=== PATIENT | female | born 1945 | race Caucasian/White ===

== ENCOUNTER 2022-09-13 19:42 | Inpatient (IN) | payer MEDICARE, BC ==
[~2022-09-13] VITALS: Ht 165.1 cm; Wt 118.8 kg
[~2022-09-13 19:42] MED LIST: AMLO10 PO; ASPI81CH PO; Avapro300 MG PO; CALCIUM CARBON650 MG PO; DECADRON4 M1 PO; Feldene20 MG; HYDCHL25 PO; MULVITMIND; VALS80; VITAMIN D31000 UNI1 PO
[2022-09-13 22:23] LABS: BASOPHILS ABSOLUTE AUTO 0.06 K/mm3 (0.00-0.23); BASOPHILS PERCENT AUTO 0 % (0-2); EOSINOPHILS ABSOLUTE AUTO 0.01 K/mm3 (0.00-0.68); EOSINOPHILS PERCENT AUTO 0 % (0-6); Hematocrit 47.4 % (33.0-51.0); Hemoglobin 15.7 g/dL (11.5-16.0); IMMATURE GRAN ABSOLUTE AUTO 0.06 K/mm3 (0.00-0.10); IMMATURE GRAN PERCENT AUTO 0 % (0-1); LYMPHOCYTES ABSOLUTE AUTO 0.72 K/mm3 (0.84-5.20); LYMPHOCYTES PERCENT AUTO 5 % (21-46); MONOCYTES ABSOLUTE AUTO 1.49 K/mm3 (0.16-1.47); MONOCYTES PERCENT AUTO 10 % (4-13); Mean Corpuscular HGB 29.6 pg (26.0-34.0); Mean Corpuscular HGB Conc 33.1 g/dL (31.5-36.5); Mean Corpuscular Volume 89 fL (80-100); Mean Platelet Volume 11.1 fL (9.1-12.4); NEUTROPHILS ABSOLUTE AUTO 13.21 K/mm3 (1.96-9.15); NEUTROPHILS PERCENT AUTO 85 % (41-73); Platelet Count 275 K/mm3 (150-400); RDW Coefficient Variation 12.6 % (11.7-14.2); RDW Standard Deviation 41.9 fL (35.1-46.3); White Blood Cell Count 15.55 K/mm3 (4.00-11.30)
[2022-09-13 22:40] LABS: Bun/Creatinine Ratio 18.1 (12.0-20.0); Calcium, Blood 10.2 mg/dL (8.5-10.1); Creatinine, Blood 0.94 mg/dL (0.40-1.00); Potassium, Blood 4.2 mmol/L (3.5-5.5)
[2022-09-14 01:17] LABS: Influenza A, PCR NEGATIVE (NEGATIVE); Influenza B, PCR NEGATIVE (NEGATIVE); SARS-Cov-2 (COVID-19) PCR, MMC NEGATIVE (NEGATIVE)
[2022-09-14 01:28] LABS: Resp Syncytial Virus, PCR POSITIVE (NEGATIVE)
--- NOTE | 2022-09-14 03:29 | NUR ---
Patient resting in room, remains NPO.
[2022-09-14 06:23] LABS: BASOPHILS ABSOLUTE AUTO 0.05 K/mm3 (0.00-0.23); BASOPHILS PERCENT AUTO 0 % (0-2); EOSINOPHILS ABSOLUTE AUTO 0.03 K/mm3 (0.00-0.68); EOSINOPHILS PERCENT AUTO 0 % (0-6); Hematocrit 45.8 % (33.0-51.0); IMMATURE GRAN ABSOLUTE AUTO 0.04 K/mm3 (0.00-0.10); IMMATURE GRAN PERCENT AUTO 0 % (0-1); LYMPHOCYTES ABSOLUTE AUTO 1.48 K/mm3 (0.84-5.20); LYMPHOCYTES PERCENT AUTO 11 % (21-46); MONOCYTES ABSOLUTE AUTO 1.94 K/mm3 (0.16-1.47); MONOCYTES PERCENT AUTO 15 % (4-13); Mean Corpuscular HGB 29.5 pg (26.0-34.0); Mean Corpuscular HGB Conc 32.8 g/dL (31.5-36.5); Mean Corpuscular Volume 90 fL (80-100); Mean Platelet Volume 10.2 fL (9.1-12.4); NEUTROPHILS ABSOLUTE AUTO 9.84 K/mm3 (1.96-9.15); NEUTROPHILS PERCENT AUTO 74 % (41-73); Platelet Count 253 K/mm3 (150-400); RDW Coefficient Variation 12.7 % (11.7-14.2); RDW Standard Deviation 42.3 fL (35.1-46.3); Red Blood Cell Count 5.09 M/mm3 (3.80-5.20); White Blood Cell Count 13.38 K/mm3 (4.00-11.30)
[2022-09-14 06:48] LABS: Albumin, Blood 3.2 g/dL (3.4-5.0); Albumin/Globulin Ratio 0.7 (0.8-1.8); Bun/Creatinine Ratio 20.7 (12.0-20.0); Calcium, Blood 10.5 mg/dL (8.5-10.1); Creatinine, Blood 0.87 mg/dL (0.40-1.00); Globulin, Blood 4.3 g/dL (2.2-4.0); Potassium, Blood 4.6 mmol/L (3.5-5.5); Total Protein, Blood 7.5 g/dL (6.4-8.2)
--- NOTE | 2022-09-14 17:46 | NUR ---
DAYSHIFT SUMMARY Patient admitted for hip fx, pelvic CT completed this morning, results showed no fracture. Surgeon at bedside & updated pt/family. Patient worked with PT/OT, therapy recommending homehealth therapy. placed discharge orders & f/u homehealth. Patient left medical floor at 1740.
== END 2022-09-14 17:40 | disposition home health service (06) | DRG 604 ==
LOC: ER 19:42 → MEDS 09-14 00:24 → ERHOLD 09-14 00:24 → MEDS 09-14 01:27
PROVIDERS: Family Medicine; Student in an Organized Health Care Education/Training Program; ADMIT Hospitalist
DX: S30.0XXA Contusion of lower back and pelvis, initial encounter (principal); J96.01 Acute respiratory failure with hypoxia; E87.1 Hypo-osmolality and hyponatremia; I10 Essential (primary) hypertension; E11.9 Type 2 diabetes mellitus without complications; E83.52 Hypercalcemia; B97.4 Respiratory syncytial virus as the cause of diseases classified elsewhere; E78.5 Hyperlipidemia, unspecified; W06.XXXA Fall from bed, initial encounter; Z20.822 Contact with and (suspected) exposure to COVID-19; N39.3 Stress incontinence (female) (male); K25.9 Gastric ulcer, unspecified as acute or chronic, without hemorrhage or perforation; G57.61 Lesion of plantar nerve, right lower limb; Z88.8 Allergy status to other drugs, medicaments and biological substances; Z79.899 Other long term (current) drug therapy; Z79.82 Long term (current) use of aspirin; Z98.890 Other specified postprocedural states; Z90.6 Acquired absence of other parts of urinary tract
CPT/HCPCS: 0241U; 36415; 71046; 72192; 73502; 76377; 80048; 80053; 82947; 83036; 84145; 85025; 94640; 94664; 94760; 97116; 97162; 97166; 97535; A9270; J3010

== ENCOUNTER → 2023-07-13 | Outpatient (CLI) | payer MEDICARE, BC | LOC: PLD 07:57 → LAB SHORT 07:57 | DX: N95.0 Postmenopausal bleeding (principal) | CPT/HCPCS: 88305; 88342 ==

== ENCOUNTER → 2023-08-12 | Outpatient (CLI) | payer MEDICARE, BC ==
[2023-08-12 15:56] LABS: Source, Urine Clean Catch
[2023-08-12 17:15] LABS: Appearance, Urine Cloudy (Clear); Bilirubin, Urine Neg (Neg); Blood, Urine 1+ (Neg); Color, Urine Yellow (P-Yellow); Glucose Qualitative, Urine 4+ (Neg); Ketones, Urine 1+ (Neg); Leukocyte Esterase, Urine 2+ (Neg); Nitrite, Urine Neg (Neg); Protein, Urine 1+ (Neg); Specific Gravity, Urine 1.025 (1.003-1.022); Urobilinogen, Urine NORM (Normal)
[2023-08-12 17:31] LABS: Amorphous Mod (0-Heavy); Calcium Oxalate Crystals Few /hpf
[2023-08-12 17:33] LABS: Bacteria Few /hpf; Red Blood Cells, Urine 0-2 /hpf (0-2); Squamous Epithelial Cells Few /hpf (Few)
== END ==
LOC: LAB 14:20 → LAB SHORT 14:20
PROVIDERS: Obstetrics & Gynecology
DX: R35.0 Frequency of micturition (principal)
CPT/HCPCS: 81001; 87086

== ENCOUNTER 2023-11-16 19:33 | Emergency (ER) | payer MEDICARE, BC ==
[~2023-11-16] VITALS: Ht 165.1 cm; Wt 106.6 kg
[2023-11-16 20:54] LABS: BASOPHILS ABSOLUTE AUTO 0.07 K/mm3 (0.00-0.23); BASOPHILS PERCENT AUTO 1 % (0-2); EOSINOPHILS PERCENT AUTO 0 % (0-6); Hematocrit 41.7 % (33.0-51.0); Hemoglobin 13.9 g/dL (11.5-16.0); IMMATURE GRAN ABSOLUTE AUTO 0.11 K/mm3 (0.00-0.10); IMMATURE GRAN PERCENT AUTO 1 % (0-1); LYMPHOCYTES ABSOLUTE AUTO 1.59 K/mm3 (0.84-5.20); LYMPHOCYTES PERCENT AUTO 11 % (21-46); MONOCYTES ABSOLUTE AUTO 0.86 K/mm3 (0.16-1.47); MONOCYTES PERCENT AUTO 6 % (4-13); Mean Corpuscular HGB 30.1 pg (26.0-34.0); Mean Corpuscular HGB Conc 33.3 g/dL (31.5-36.5); Mean Corpuscular Volume 90 fL (80-100); Mean Platelet Volume 9.7 fL (9.1-12.4); NEUTROPHILS ABSOLUTE AUTO 11.55 K/mm3 (1.96-9.15); NEUTROPHILS PERCENT AUTO 81 % (41-73); Platelet Count 232 K/mm3 (150-400); RDW Coefficient Variation 15.3 % (11.7-14.2); RDW Standard Deviation 49.4 fL (35.1-46.3); Red Blood Cell Count 4.62 M/mm3 (3.80-5.20); White Blood Cell Count 14.18 K/mm3 (4.00-11.30)
[2023-11-16 21:18] LABS: Albumin, Blood 3.2 g/dL (3.4-5.0); Albumin/Globulin Ratio 0.7 (0.8-1.8); Bilirubin, Total 1.2 mg/dL (0.1-1.0); Bun/Creatinine Ratio 27.8 (12.0-20.0); Calcium, Blood 10.7 mg/dL (8.5-10.1); Creatinine, Blood 0.65 mg/dL (0.40-1.00); Globulin, Blood 4.4 g/dL (2.2-4.0); Potassium, Blood 3.8 mmol/L (3.5-5.5); Total Protein, Blood 7.6 g/dL (6.4-8.2)
[2023-11-16 23:05] LABS: Source, Urine Clean Catch
[2023-11-16 23:09] LABS: Bilirubin, Urine Neg (Neg); Blood, Urine Neg (Neg); Glucose Qualitative, Urine 3+ (Neg); Ketones, Urine 2+ (Neg); Leukocyte Esterase, Urine 1+ (Neg); Nitrite, Urine Neg (Neg); Protein, Urine 2+ (Neg); Specific Gravity, Urine 1.025 (1.003-1.022); Urobilinogen, Urine 2+ (Normal)
[2023-11-16 23:33] LABS: Influenza A, PCR NEGATIVE (NEGATIVE); Influenza B, PCR NEGATIVE (NEGATIVE); Resp Syncytial Virus, PCR NEGATIVE (NEGATIVE); SARS-Cov-2 (COVID-19) PCR, MMC NEGATIVE (NEGATIVE)
[2023-11-16 23:38] LABS: Appearance, Urine Hazy (Clear); Color, Urine Yellow (P-Yellow)
[2023-11-16 23:40] LABS: Bacteria Mod /hpf; Mucus Light (0-Heavy); Red Blood Cells, Urine 0-2 /hpf (0-2); Squamous Epithelial Cells Few /hpf (Few); White Blood Cells, Urine 0-2 /hpf (0-5)
[2023-11-17] MEDS ORDERED: ELIQUIS2.5 M1 PO (00:05)
[2023-11-17] MEDS ORDERED: HYDROCODONE-AC1 EA19 PO (00:06)
[2023-11-17] MEDS ORDERED: BASAGLAR K100 UNIT/3 SC (00:07)
[2023-11-17] MEDS ORDERED: VITAMIN B122500 MC1 PO (00:11)
[2023-11-17] MEDS ORDERED: QUNOL MEGA COQ100 MG PO (00:12)
[2023-11-17] MEDS ORDERED: CefTRIAXone Sodium 1,000 MG in NS 50 ML IV ONE (01:10)
[2023-11-17] MEDS ORDERED: CEPH500 PO (04:11)
[2023-11-17] MEDS ORDERED: Cephalexin Monohydrate 500 MG Cap PO SCH (04:15)
[2023-11-17] MEDS ORDERED: HYDROcodone 5-APAP 325 TAB PO PRN (04:35)
[2023-11-17] MEDS ORDERED: Apixaban 5 MG Tab PO SCH (09:00)
[2023-11-17] MEDS ORDERED: AmLODIPine Besylate 5 MG Tab PO SCH (09:00)
[2023-11-17 10:41] VITALS: BP 118/73
[2023-11-17] MEDS ORDERED: Insulin Glargine-Yfgn 100 Unit/mL 3 ML SYR SC SCH (21:00)
== END 2023-11-17 11:14 | disposition home or self-care (01) ==
LOC: ER 19:33
PROVIDERS: Emergency Medicine; Physician Assistant
DX: R53.1 Weakness (principal); N39.0 Urinary tract infection, site not specified; R29.6 Repeated falls; C55 Malignant neoplasm of uterus, part unspecified; I10 Essential (primary) hypertension; E78.5 Hyperlipidemia, unspecified; Z73.89 Other problems related to life management difficulty; Z88.8 Allergy status to other drugs, medicaments and biological substances; Z79.899 Other long term (current) drug therapy; Z79.82 Long term (current) use of aspirin
CPT/HCPCS: 0241U; 51701; 71260; 80053; 81001; 85025; 87086; 93005; 93010; 96374; 99285-25; A9270; J0696; J1815; Q9967

== ENCOUNTER 2024-01-14 14:41 | Inpatient (IN) | payer MEDICARE, BC ==
[~2024-01-14] VITALS: Ht 167.6 cm; Wt 105.6 kg
[~2024-01-14 14:41] MED LIST changes: +BASAGLAR K100 UNIT/3 SC; +CEPH500 PO; +ELIQUIS2.5 M1 PO; +HYDROCODONE-AC1 EA19 PO; +QUNOL MEGA COQ100 MG PO; +VITAMIN B122500 MC1 PO; -VITAMIN D31000 UNI1 PO; +VITAMIN D5000 UNIT PO
[2024-01-14 15:08] LABS: BASOPHILS ABSOLUTE AUTO 0.04 K/mm3 (0.00-0.23); BASOPHILS PERCENT AUTO 0 % (0-2); EOSINOPHILS ABSOLUTE AUTO 0.01 K/mm3 (0.00-0.68); EOSINOPHILS PERCENT AUTO 0 % (0-6); Hematocrit 42.9 % (33.0-51.0); Hemoglobin 14.1 g/dL (11.5-16.0); IMMATURE GRAN ABSOLUTE AUTO 0.09 K/mm3 (0.00-0.10); IMMATURE GRAN PERCENT AUTO 0 % (0-1); LYMPHOCYTES ABSOLUTE AUTO 0.85 K/mm3 (0.84-5.20); LYMPHOCYTES PERCENT AUTO 4 % (21-46); MONOCYTES ABSOLUTE AUTO 1.95 K/mm3 (0.16-1.47); MONOCYTES PERCENT AUTO 10 % (4-13); Mean Corpuscular HGB 30.5 pg (26.0-34.0); Mean Corpuscular HGB Conc 32.9 g/dL (31.5-36.5); Mean Corpuscular Volume 93 fL (80-100); Mean Platelet Volume 9.2 fL (9.1-12.4); NEUTROPHILS ABSOLUTE AUTO 17.55 K/mm3 (1.96-9.15); NEUTROPHILS PERCENT AUTO 86 % (41-73); Platelet Count 324 K/mm3 (150-400); RDW Coefficient Variation 13.4 % (11.7-14.2); RDW Standard Deviation 45.9 fL (35.1-46.3); Red Blood Cell Count 4.62 M/mm3 (3.80-5.20); White Blood Cell Count 20.49 K/mm3 (4.00-11.30)
[2024-01-14 15:31] LABS: Albumin, Blood 2.9 g/dL (3.4-5.0); Albumin/Globulin Ratio 0.6 (0.8-1.8); Bilirubin, Total 1.1 mg/dL (0.1-1.0); Bun/Creatinine Ratio 18.2 (12.0-20.0); Calcium, Blood 10.9 mg/dL (8.5-10.1); Creatinine, Blood 0.66 mg/dL (0.40-1.00); Globulin, Blood 4.7 g/dL (2.2-4.0); Potassium, Blood 3.6 mmol/L (3.5-5.5); Total Protein, Blood 7.6 g/dL (6.4-8.2)
[2024-01-14] MEDS ORDERED: Acetaminophen 500 MG Tab PO ONE (15:45)
[2024-01-14] MEDS ORDERED: NS 1,000 ML IV SCH ×3 (15:45→20:00)
[2024-01-14] MEDS ORDERED: Piperacillin/Tazobactam Sod 3.375 GM in NS 100 ML IV ONE (15:50)
[2024-01-14 16:23] LABS: Influenza A, PCR NEGATIVE (NEGATIVE); Influenza B, PCR NEGATIVE (NEGATIVE); Resp Syncytial Virus, PCR NEGATIVE (NEGATIVE); SARS-Cov-2 (COVID-19) PCR, MMC NEGATIVE (NEGATIVE)
[2024-01-14 16:30] LABS: Source, Urine Straight Cath
[2024-01-14 16:35] LABS: Appearance, Urine Hazy (Clear); Bilirubin, Urine Neg (Neg); Blood, Urine 1+ (Neg); Color, Urine Yellow (P-Yellow); Glucose Qualitative, Urine Neg (Neg); Ketones, Urine 2+ (Neg); Leukocyte Esterase, Urine 1+ (Neg); Nitrite, Urine Neg (Neg); Protein, Urine 1+ (Neg); Specific Gravity, Urine 1.025 (1.003-1.022); Urobilinogen, Urine 2+ (Normal)
[2024-01-14 16:42] LABS: Squamous Epithelial Cells Many /hpf (Few)
[2024-01-14 16:44] LABS: Amorphous Mod (0-Heavy); Bacteria Many /hpf; Mucus Light (0-Heavy); Red Blood Cells, Urine 0-2 /hpf (0-2); Uric Acid Crystals Mod /hpf; White Blood Cells, Urine 0-2 /hpf (0-5)
[2024-01-14] MEDS ORDERED: Ondansetron HCl 2 MG / ML 2ML Vial IV PRN (18:35)
[2024-01-14] MEDS ORDERED: Acetaminophen 325 MG TABLET PO PRN (18:35)
[2024-01-14] MEDS ORDERED: Lactobacil 2-S.Thermo-Bifido 1 1 Cap PO SCH (21:00)
[2024-01-14] MEDS ORDERED: Docusate Sodium 100 MG Cap PO SCH (21:00)
[2024-01-14] MEDS ORDERED: CefTRIAXone Sodium 1,000 MG in NS 100 ML IV SCH (21:00)
[2024-01-14] MEDS ORDERED: Insulin Glargine-Yfgn 100 Unit/mL 3 ML SYR SC SCH (21:00)
[2024-01-14 22:57] VITALS: BP 147/74
[2024-01-15 04:24] VITALS: BP 104/49
[2024-01-15 04:50] LABS: BASOPHILS ABSOLUTE AUTO 0.06 K/mm3 (0.00-0.23); BASOPHILS PERCENT AUTO 0 % (0-2); EOSINOPHILS ABSOLUTE AUTO 0.09 K/mm3 (0.00-0.68); EOSINOPHILS PERCENT AUTO 0 % (0-6); Hematocrit 37.7 % (33.0-51.0); Hemoglobin 12.6 g/dL (11.5-16.0); IMMATURE GRAN ABSOLUTE AUTO 0.13 K/mm3 (0.00-0.10); IMMATURE GRAN PERCENT AUTO 1 % (0-1); LYMPHOCYTES ABSOLUTE AUTO 2.32 K/mm3 (0.84-5.20); LYMPHOCYTES PERCENT AUTO 10 % (21-46); MONOCYTES ABSOLUTE AUTO 2.33 K/mm3 (0.16-1.47); MONOCYTES PERCENT AUTO 10 % (4-13); Mean Corpuscular HGB 30.5 pg (26.0-34.0); Mean Corpuscular HGB Conc 33.4 g/dL (31.5-36.5); Mean Corpuscular Volume 91 fL (80-100); Mean Platelet Volume 9.3 fL (9.1-12.4); NEUTROPHILS ABSOLUTE AUTO 17.66 K/mm3 (1.96-9.15); NEUTROPHILS PERCENT AUTO 78 % (41-73); Platelet Count 275 K/mm3 (150-400); RDW Coefficient Variation 13.5 % (11.7-14.2); RDW Standard Deviation 45.7 fL (35.1-46.3); Red Blood Cell Count 4.13 M/mm3 (3.80-5.20); White Blood Cell Count 22.59 K/mm3 (4.00-11.30)
[2024-01-15 05:19] LABS: Albumin, Blood 2.1 g/dL (3.4-5.0); Albumin/Globulin Ratio 0.5 (0.8-1.8); Bun/Creatinine Ratio 15.4 (12.0-20.0); Calcium, Blood 10.4 mg/dL (8.5-10.1); Creatinine, Blood 0.65 mg/dL (0.40-1.00); Magnesium, Blood 1.8 mg/dL (1.6-2.4); Potassium, Blood 3.5 mmol/L (3.5-5.5); Total Protein, Blood 6.1 g/dL (6.4-8.2)
[2024-01-15] MEDS ORDERED: Insulin Human Lispro 100 Units/ML 3ML Syringe SC SCH (07:30)
[2024-01-15 07:50] VITALS: BP 115/60
[2024-01-15] MEDS ORDERED: Cholecalciferol 1000 Unit Tablet (=25MCG) PO SCH (09:00)
[2024-01-15] MEDS ORDERED: AmLODIPine Besylate 5 MG Tab PO SCH (09:00)
[2024-01-15] MEDS ORDERED: Enoxaparin 40 MG/0.4 ML SYR SC SCH (09:00)
[2024-01-15] MEDS ORDERED: Cholecalciferol 1000 Unit Tablet (=25MCG) PO ONE (11:50)
[2024-01-15] MEDS ORDERED: Miconazole Nitrate 2% 85 GM PWD TOP ONE (12:00)
[2024-01-15] MEDS ORDERED: Enoxaparin 60 MG/0.6 ML SYR SC ONE (14:45)
[2024-01-15 15:30] VITALS: BP 124/59
[2024-01-15] MEDS ORDERED: TraMADol HCl 50 MG Tab PO PRN (17:35)
[2024-01-15] MEDS ORDERED: NS 250 ML IV PRN (20:40)
[2024-01-15] MEDS ORDERED: Miconazole Nitrate 2% 85 GM PWD TOP SCH (21:00)
[2024-01-15 21:12] VITALS: BP 128/65
[2024-01-15] MEDS ORDERED: Enoxaparin 100 MG/ML 1ML SYR SC SCH (23:00)
[2024-01-16 02:53] VITALS: BP 140/66
[2024-01-16 05:18] LABS: BASOPHILS ABSOLUTE AUTO 0.04 K/mm3 (0.00-0.23); BASOPHILS PERCENT AUTO 0 % (0-2); EOSINOPHILS ABSOLUTE AUTO 0.22 K/mm3 (0.00-0.68); EOSINOPHILS PERCENT AUTO 1 % (0-6); IMMATURE GRAN ABSOLUTE AUTO 0.12 K/mm3 (0.00-0.10); IMMATURE GRAN PERCENT AUTO 1 % (0-1); LYMPHOCYTES ABSOLUTE AUTO 2.14 K/mm3 (0.84-5.20); LYMPHOCYTES PERCENT AUTO 11 % (21-46); MONOCYTES ABSOLUTE AUTO 1.49 K/mm3 (0.16-1.47); MONOCYTES PERCENT AUTO 8 % (4-13); Mean Corpuscular HGB 30.2 pg (26.0-34.0); Mean Corpuscular HGB Conc 32.5 g/dL (31.5-36.5); Mean Corpuscular Volume 93 fL (80-100); Mean Platelet Volume 9.2 fL (9.1-12.4); NEUTROPHILS ABSOLUTE AUTO 14.88 K/mm3 (1.96-9.15); NEUTROPHILS PERCENT AUTO 79 % (41-73); Platelet Count 274 K/mm3 (150-400); RDW Coefficient Variation 13.4 % (11.7-14.2); Red Blood Cell Count 4.31 M/mm3 (3.80-5.20); White Blood Cell Count 18.89 K/mm3 (4.00-11.30)
[2024-01-16 05:52] LABS: Bun/Creatinine Ratio 17.1 (12.0-20.0); Calcium, Blood 10.6 mg/dL (8.5-10.1); Creatinine, Blood 0.7 mg/dL (0.40-1.00); Potassium, Blood 3.8 mmol/L (3.5-5.5)
[2024-01-16 07:36] VITALS: BP 125/72
[2024-01-16] MEDS ORDERED: Cholecalciferol 1000 Unit Tablet (=25MCG) PO SCH (09:00)
[2024-01-16 15:01] VITALS: BP 134/69
[2024-01-16 19:44] VITALS: BP 126/77
[2024-01-17 03:43] VITALS: BP 140/76
[2024-01-17 05:18] LABS: BASOPHILS ABSOLUTE AUTO 0.05 K/mm3 (0.00-0.23); BASOPHILS PERCENT AUTO 0 % (0-2); EOSINOPHILS ABSOLUTE AUTO 0.29 K/mm3 (0.00-0.68); EOSINOPHILS PERCENT AUTO 2 % (0-6); Hematocrit 39.3 % (33.0-51.0); Hemoglobin 13.1 g/dL (11.5-16.0); IMMATURE GRAN PERCENT AUTO 1 % (0-1); LYMPHOCYTES ABSOLUTE AUTO 2.04 K/mm3 (0.84-5.20); LYMPHOCYTES PERCENT AUTO 15 % (21-46); MONOCYTES ABSOLUTE AUTO 1.14 K/mm3 (0.16-1.47); MONOCYTES PERCENT AUTO 8 % (4-13); Mean Corpuscular HGB 30.3 pg (26.0-34.0); Mean Corpuscular HGB Conc 33.3 g/dL (31.5-36.5); Mean Corpuscular Volume 91 fL (80-100); Mean Platelet Volume 9.3 fL (9.1-12.4); NEUTROPHILS ABSOLUTE AUTO 10.42 K/mm3 (1.96-9.15); NEUTROPHILS PERCENT AUTO 74 % (41-73); Platelet Count 303 K/mm3 (150-400); RDW Coefficient Variation 13.3 % (11.7-14.2); RDW Standard Deviation 44.9 fL (35.1-46.3); Red Blood Cell Count 4.33 M/mm3 (3.80-5.20); White Blood Cell Count 14.04 K/mm3 (4.00-11.30)
[2024-01-17 05:45] LABS: Bun/Creatinine Ratio 20.5 (12.0-20.0); Calcium, Blood 10.3 mg/dL (8.5-10.1); Creatinine, Blood 0.58 mg/dL (0.40-1.00); Potassium, Blood 3.4 mmol/L (3.5-5.5)
[2024-01-17 08:03] VITALS: BP 141/100
[2024-01-17 08:54] VITALS: BP 144/103
[2024-01-17 16:04] VITALS: BP 131/67
[2024-01-17 19:53] VITALS: BP 117/74
[2024-01-18 02:29] VITALS: BP 134/73
[2024-01-18 07:19] VITALS: BP 128/77
[2024-01-18 15:49] VITALS: BP 132/77
[2024-01-18 19:58] VITALS: BP 140/88
[2024-01-18] MEDS ORDERED: Apixaban 5 MG Tab PO SCH (21:00)
[2024-01-19 05:37] VITALS: BP 146/87
[2024-01-19 07:27] VITALS: BP 147/66
[2024-01-19 11:32] LABS: Influenza A, PCR NEGATIVE (NEGATIVE); Influenza B, PCR NEGATIVE (NEGATIVE); Resp Syncytial Virus, PCR NEGATIVE (NEGATIVE); SARS-Cov-2 (COVID-19) PCR, MMC NEGATIVE (NEGATIVE)
[2024-01-19] MEDS ORDERED: Lactulose 20 GM/30 ML UDC PO SCH (12:00)
[2024-01-19 15:17] VITALS: BP 151/71
[2024-01-19 19:42] VITALS: BP 139/81
[2024-01-20 04:30] VITALS: BP 146/81
[2024-01-20 05:11] LABS: Hemoglobin 14.1 g/dL (11.5-16.0); Mean Corpuscular HGB 29.7 pg (26.0-34.0); Mean Corpuscular HGB Conc 32.8 g/dL (31.5-36.5); Mean Corpuscular Volume 91 fL (80-100); Mean Platelet Volume 8.8 fL (9.1-12.4); Platelet Count 315 K/mm3 (150-400); RDW Coefficient Variation 13.2 % (11.7-14.2); RDW Standard Deviation 44.6 fL (35.1-46.3); Red Blood Cell Count 4.74 M/mm3 (3.80-5.20)
[2024-01-20 07:32] VITALS: BP 121/71
[2024-01-20] MEDS ORDERED: CO Q10100 MG PO (13:59)
[2024-01-20] MEDS ORDERED: ACET325 PO (14:01)
[2024-01-20] MEDS ORDERED: DOCU100 PO (14:03)
[2024-01-20] MEDS ORDERED: HUMALOG KW100 UNIT/1 SC (14:04)
[2024-01-20] MEDS ORDERED: MICONAZOLE NITR85 GM TOP (14:05)
[2024-01-20] MEDS ORDERED: LACT PO (14:05)
[2024-01-20] MEDS ORDERED: DICLOFENAC SOD100 GM (14:06)
[2024-01-20] MEDS ORDERED: OXYC5 PO (14:07)
[2024-01-20 15:30] VITALS: BP 129/67
[2024-01-20 16:36] LABS: Albumin, Blood 2.1 g/dL (3.4-5.0); Albumin/Globulin Ratio 0.4 (0.8-1.8); Bilirubin, Total 0.4 mg/dL (0.1-1.0); Bun/Creatinine Ratio 19.7 (12.0-20.0); Calcium, Blood 10.7 mg/dL (8.5-10.1); Creatinine, Blood 0.56 mg/dL (0.40-1.00); Globulin, Blood 4.7 g/dL (2.2-4.0); Potassium, Blood 3.7 mmol/L (3.5-5.5); Total Protein, Blood 6.8 g/dL (6.4-8.2)
== END 2024-01-20 19:00 | DRG 689 ==
LOC: ER 14:41 → MEDS 14:42 → ERHOLD 14:42 → MEDS 14:42 → ER 14:42 → ERHOLD 22:33 → MEDS 22:33 → ERHOLD 01-15 15:45 → MEDS 01-15 21:57
PROVIDERS: Internal Medicine; Student in an Organized Health Care Education/Training Program; ADMIT Student in an Organized Health Care Education/Training Program
DX: N39.0 Urinary tract infection, site not specified (principal); I26.99 Other pulmonary embolism without acute cor pulmonale; R65.10 Systemic inflammatory response syndrome (SIRS) of non-infectious origin without acute organ dysfunction; G95.29 Other cord compression; C79.51 Secondary malignant neoplasm of bone; I10 Essential (primary) hypertension; E78.5 Hyperlipidemia, unspecified; M17.12 Unilateral primary osteoarthritis, left knee; E11.9 Type 2 diabetes mellitus without complications; G89.29 Other chronic pain; M25.562 Pain in left knee; E83.52 Hypercalcemia; Z90.11 Acquired absence of right breast and nipple; Z98.890 Other specified postprocedural states; Z85.42 Personal history of malignant neoplasm of other parts of uterus; Z92.21 Personal history of antineoplastic chemotherapy; Z90.710 Acquired absence of both cervix and uterus; Z88.8 Allergy status to other drugs, medicaments and biological substances; Z79.4 Long term (current) use of insulin; Z79.899 Other long term (current) drug therapy
CPT/HCPCS: 0241U; 36415; 71045; 71260; 72192; 73502; 73560-LT; 80048; 80053; 81001; 82330; 82947; 83605; 83735; 83880; 83970; 85025; 85027; 85379; 87040; 87086; 93005; 93010; 93308; 93321; 93970; 96361; 96365; 96367; 96372; 97110; 97162; 97165; 97530; 97535; 99285-25; A9270; G0378; J0696; J1650; J1815; J2543; J7030; J7050; P9612; Q9967

== ENCOUNTER 2024-01-30 18:27 | Emergency (ER) | payer MEDICARE, BC ==
[~2024-01-30] VITALS: Ht 165.1 cm; Wt 90.7 kg
[~2024-01-30 18:27] MED LIST changes: +ACET325 PO; +CO Q10100 MG PO; +DICLOFENAC SOD100 GM; +DOCU100 PO; +HUMALOG KW100 UNIT/1 SC; +LACT PO; +MICONAZOLE NITR85 GM TOP; +OXYC5 PO
[2024-01-30 18:44] LABS: BASOPHILS ABSOLUTE AUTO 0.05 K/mm3 (0.00-0.23); BASOPHILS PERCENT AUTO 0 % (0-2); EOSINOPHILS ABSOLUTE AUTO 0.04 K/mm3 (0.00-0.68); EOSINOPHILS PERCENT AUTO 0 % (0-6); Hematocrit 47.6 % (33.0-51.0); Hemoglobin 15.1 g/dL (11.5-16.0); IMMATURE GRAN PERCENT AUTO 1 % (0-1); LYMPHOCYTES ABSOLUTE AUTO 1.11 K/mm3 (0.84-5.20); LYMPHOCYTES PERCENT AUTO 7 % (21-46); MONOCYTES ABSOLUTE AUTO 1.54 K/mm3 (0.16-1.47); MONOCYTES PERCENT AUTO 10 % (4-13); Mean Corpuscular HGB 29.3 pg (26.0-34.0); Mean Corpuscular HGB Conc 31.7 g/dL (31.5-36.5); Mean Corpuscular Volume 92 fL (80-100); Mean Platelet Volume 8.7 fL (9.1-12.4); NEUTROPHILS ABSOLUTE AUTO 13.31 K/mm3 (1.96-9.15); NEUTROPHILS PERCENT AUTO 83 % (41-73); Platelet Count 428 K/mm3 (150-400); RDW Coefficient Variation 12.9 % (11.7-14.2); Red Blood Cell Count 5.15 M/mm3 (3.80-5.20); White Blood Cell Count 16.15 K/mm3 (4.00-11.30)
[2024-01-30 19:07] LABS: Albumin, Blood 2.8 g/dL (3.4-5.0); Albumin/Globulin Ratio 0.5 (0.8-1.8); Bilirubin, Total 0.9 mg/dL (0.1-1.0); Bun/Creatinine Ratio 22.5 (12.0-20.0); Calcium, Blood 12.3 mg/dL (8.5-10.1); Creatinine, Blood 0.71 mg/dL (0.40-1.00); Globulin, Blood 5.6 g/dL (2.2-4.0); Potassium, Blood 3.6 mmol/L (3.5-5.5); Total Protein, Blood 8.4 g/dL (6.4-8.2)
[2024-01-30] MEDS ORDERED: NS 1,000 ML IV SCH (19:20)
[2024-01-30 19:28] LABS: Source, Urine Straight Cath
[2024-01-30 19:32] LABS: Appearance, Urine Hazy (Clear); Bilirubin, Urine Neg (Neg); Blood, Urine Neg (Neg); Color, Urine Yellow (P-Yellow); Glucose Qualitative, Urine Neg (Neg); Ketones, Urine Neg (Neg); Leukocyte Esterase, Urine 1+ (Neg); Nitrite, Urine Neg (Neg); Protein, Urine 1+ (Neg); Specific Gravity, Urine 1.025 (1.003-1.022); Urobilinogen, Urine 3+ (Normal)
[2024-01-30 19:39] LABS: Amorphous Light (0-Heavy); Bacteria Mod /hpf; Red Blood Cells, Urine Not Seen /hpf (0-2); Squamous Epithelial Cells Few /hpf (Few)
[2024-01-30] MEDS ORDERED: CEPH500 PO (20:23)
[2024-01-30] MEDS ORDERED: Cephalexin Monohydrate 500 MG Cap PO ONE (20:25)
[2024-01-30 21:00] VITALS: BP 127/72
== END 2024-01-30 21:07 | disposition home or self-care (01) ==
LOC: ER 18:27
PROVIDERS: Emergency Medicine
DX: N39.0 Urinary tract infection, site not specified (principal); G92.8 Other toxic encephalopathy; D72.829 Elevated white blood cell count, unspecified; Z79.899 Other long term (current) drug therapy; Z79.01 Long term (current) use of anticoagulants; Z79.4 Long term (current) use of insulin
CPT/HCPCS: 80053; 81001; 85025; 87086; 99285-25; A9270; J7030; P9612

== ENCOUNTER 2024-02-21 11:22 | Emergency (ER) | payer MEDICARE, BC ==
[~2024-02-21] VITALS: Ht 165.1 cm; Wt 100.7 kg
[2024-02-21 21:14] VITALS: BP 119/71
== END 2024-02-21 21:35 | disposition short-term general hospital (02) ==
LOC: ER 11:22
DX: N30.01 Acute cystitis with hematuria (principal); K35.33 Acute appendicitis with perforation, localized peritonitis, and gangrene, with abscess; R41.0 Disorientation, unspecified; I82.422 Acute embolism and thrombosis of left iliac vein; I10 Essential (primary) hypertension; Z88.8 Allergy status to other drugs, medicaments and biological substances; Z79.899 Other long term (current) drug therapy; Z79.01 Long term (current) use of anticoagulants; Z79.4 Long term (current) use of insulin

== ENCOUNTER → 2024-08-14 | Outpatient (CLI) | payer MEDICARE, BC ==
[~2024-08-14] MED LIST changes: +CIPR500 PO; +COLCRYS0.6 M1 PO; -ELIQUIS2.5 M1 PO; +ELIQUIS5 M2 PO; +NEURONTIN300 MG PO
[2024-08-14 16:24] LABS: Source, Urine Voided
[2024-08-14 17:24] LABS: Appearance, Urine Cloudy (Clear); Bilirubin, Urine Neg (Neg); Blood, Urine 1+ (Neg); Color, Urine Yellow (P-Yellow); Glucose Qualitative, Urine Neg (Neg); Ketones, Urine Neg (Neg); Leukocyte Esterase, Urine 3+ (Neg); Nitrite, Urine Neg (Neg); Protein, Urine 1+ (Neg); Specific Gravity, Urine 1.015 (1.003-1.022); Urobilinogen, Urine 2+ (Normal); pH, Urine 6.5 (5.0-8.0)
[2024-08-14 17:40] LABS: White Blood Cells, Urine TNTC /hpf (0-5)
[2024-08-14 17:41] LABS: Bacteria Many /hpf; Calcium Oxalate Crystals Few /hpf; Squamous Epithelial Cells Many /hpf (Few)
== END | disposition home or self-care (01) ==
LOC: LAB 16:22 → LAB SHORT 16:22
PROVIDERS: Physician Assistant
DX: R30.0 Dysuria (principal)
CPT/HCPCS: 81001; 87077; 87086; 87186

== ENCOUNTER 2024-08-15 13:46 | Inpatient (IN) | payer MEDICARE, BC ==
[~2024-08-15] VITALS: Ht 167.6 cm; Wt 92.0 kg
[~2024-08-15 13:46] MED LIST changes: -COLCRYS0.6 M1 PO; -NEURONTIN300 MG PO
[2024-08-15] MEDS ORDERED: CefTRIAXone Sodium 1,000 MG in NS 100 ML IV ONE (16:10)
[2024-08-15 17:19] LABS: BASOPHILS ABSOLUTE AUTO 0.04 K/mm3 (0.00-0.23); BASOPHILS PERCENT AUTO 0 % (0-2); EOSINOPHILS ABSOLUTE AUTO 0.17 K/mm3 (0.00-0.68); EOSINOPHILS PERCENT AUTO 1 % (0-6); Hematocrit 45.5 % (33.0-51.0); Hemoglobin 14.9 g/dL (11.5-16.0); IMMATURE GRAN ABSOLUTE AUTO 0.13 K/mm3 (0.00-0.10); IMMATURE GRAN PERCENT AUTO 1 % (0-1); LYMPHOCYTES ABSOLUTE AUTO 2.03 K/mm3 (0.84-5.20); LYMPHOCYTES PERCENT AUTO 11 % (21-46); MONOCYTES ABSOLUTE AUTO 1.49 K/mm3 (0.16-1.47); MONOCYTES PERCENT AUTO 8 % (4-13); Mean Corpuscular HGB 29.5 pg (26.0-34.0); Mean Corpuscular HGB Conc 32.7 g/dL (31.5-36.5); Mean Corpuscular Volume 90 fL (80-100); Mean Platelet Volume 8.6 fL (9.1-12.4); NEUTROPHILS ABSOLUTE AUTO 14.19 K/mm3 (1.96-9.15); NEUTROPHILS PERCENT AUTO 79 % (41-73); Platelet Count 484 K/mm3 (150-400); RDW Coefficient Variation 14.2 % (11.7-14.2); RDW Standard Deviation 47.1 fL (35.1-46.3); Red Blood Cell Count 5.05 M/mm3 (3.80-5.20); White Blood Cell Count 18.05 K/mm3 (4.00-11.30)
[2024-08-15 17:38] LABS: Bun/Creatinine Ratio 30.4 (12.0-20.0); Calcium, Blood 10.9 mg/dL (8.5-10.1); Creatinine, Blood 0.66 mg/dL (0.40-1.00)
[2024-08-15] MEDS ORDERED: NS 1,000 ML IV SCH ×2 (17:40→19:05)
[2024-08-15] MEDS ORDERED: Ondansetron HCl 2 MG / ML 2ML Vial IV PRN (19:05)
[2024-08-15] MEDS ORDERED: FLU VACC TS2024-25(6MOS UP)/PF 45 MCG/0.5 ML SYRINGE IM ONE (19:05)
[2024-08-15 20:27] LABS: Source, Urine Straight Cath
[2024-08-15 20:29] LABS: Appearance, Urine Hazy (Clear); Bilirubin, Urine Neg (Neg); Blood, Urine 3+ (Neg); Color, Urine Yellow (P-Yellow); Glucose Qualitative, Urine Neg (Neg); Ketones, Urine Neg (Neg); Leukocyte Esterase, Urine 3+ (Neg); Nitrite, Urine Neg (Neg); Protein, Urine 2+ (Neg); Urobilinogen, Urine 1+ (Normal)
[2024-08-15 20:39] LABS: Bacteria Many /hpf; Red Blood Cells, Urine TNTC /hpf (0-2); Squamous Epithelial Cells Mod /hpf (Few); White Blood Cells, Urine TNTC /hpf (0-5)
[2024-08-15 20:40] LABS: Amorphous Mod (0-Heavy); Calcium Oxalate Crystals Rare /hpf; WBC Cast 0-2 /lpf (0)
[2024-08-15] MEDS ORDERED: NEURONTIN300 MG PO (20:58)
[2024-08-15] MEDS ORDERED: COLCRYS0.6 M1 PO (20:59)
[2024-08-15] MEDS ORDERED: Lactobacil 2-S.Thermo-Bifido 1 1 Cap PO SCH (21:00)
[2024-08-15] MEDS ORDERED: Insulin Glargine-Yfgn 100 Unit/mL 3 ML SYR SC SCH (21:00)
[2024-08-15] MEDS ORDERED: HYDROCODONE-AC1 EA19 PO (21:00)
[2024-08-15] MEDS ORDERED: Cefepime HCl 2,000 MG in NS 100 ML IV SCH (21:00)
[2024-08-15] MEDS ORDERED: Apixaban 5 MG Tab PO SCH (21:00)
[2024-08-15 22:15] VITALS: BP 158/89
--- NOTE | 2024-08-16 03:30 | NUR ---
SHIFT SUMMARY: PT ARRIVED TO RM#[id number] FROM ER @ 2199. BLEACHER PULP T-REPORT RECEIVED FROM ARTHUR @2139. PT TRANSFERRED IN A GURNEY, WAS TRANSFERRED TO HOSPITAL BED WITH STAFF MEMBERS. PT REPORTS UNABLE TO PUT WEIGHT ON LE'S D/T RECENT WEAKNESS, UNABLE TO USE FWW. PT REPORTS NEEDING A LIFT FOR TRANSFERRING TO BEDSIDE COMMODE. NS INFUSING 2 OUT OF 3 BAGS @100MLS/HR. IV ABX INFUSED ORDERED. PT DENIES PAIN AND DISCOMFORT. FEMALE PUREWICK IN PLACE, DRAINING YELLOW COLOR URINE. NEW IV@LEFT FOREARM D/T LEAKING. PT ON THE PHONE WITH HER DAUGHTER WHO IS PT'S PRIMARY CONTACT. ADMISSION ASSESSMENT COMPLETED BY DULCE DE LA PAZ, SKIN CHECK WITH THIS COMPUTER SCIENCE INSTRUCTOR. MED REC AND HEALTH HX COMPLETED BY THIS COMPUTER SCIENCE INSTRUCTOR. PT REPORTS HAD A FLU VACCINATION FEW MONTHS AGO. PT WAS ABLE TO ANSWER ADMISSION QUESTIONS APPROPRIATELY, A&O X3-4. NO ACUTE EVENTS DURING THIS SHIFT, BED AT THE LOWEST POSITION, CALL LIGHT W/I REACH. CONTINUING PT EDUCATION D/T PT REFUSED HS BG PJ: 147.
[2024-08-16 04:22] VITALS: BP 142/83
[2024-08-16 05:42] LABS: Hematocrit 42.4 % (33.0-51.0); Hemoglobin 13.6 g/dL (11.5-16.0); Mean Corpuscular HGB 29.4 pg (26.0-34.0); Mean Corpuscular HGB Conc 32.1 g/dL (31.5-36.5); Mean Corpuscular Volume 92 fL (80-100); Mean Platelet Volume 8.8 fL (9.1-12.4); Platelet Count 449 K/mm3 (150-400); RDW Coefficient Variation 14.2 % (11.7-14.2); RDW Standard Deviation 47.8 fL (35.1-46.3); Red Blood Cell Count 4.62 M/mm3 (3.80-5.20); White Blood Cell Count 16.51 K/mm3 (4.00-11.30)
[2024-08-16 06:13] LABS: Bun/Creatinine Ratio 32.1 (12.0-20.0); Creatinine, Blood 0.59 mg/dL (0.40-1.00); Potassium, Blood 3.9 mmol/L (3.5-5.5)
[2024-08-16 07:26] VITALS: BP 134/75
[2024-08-16] MEDS ORDERED: Insulin Human Lispro 100 Units/ML 3ML Syringe SC SCH (07:30)
[2024-08-16 15:47] VITALS: BP 119/71
[2024-08-16] MEDS ORDERED: OxyCODONE HCL 5 MG TAB PO PRN (17:15)
--- NOTE | 2024-08-16 17:50 | NUR ---
SHIFT SUMMARY PATIENT A/OX3, BUT CONFUSED AND FORGETFUL INTERMITTENTLY. PATIENT EASILY REORIENTED. MEPILEX PLACED TO LEFT BUTTOCK AND LEFT THIGH ABRASIONS THIS SHIFT, CONTINUES WITH Q 2 HOUR REPOSITIONING. GLARGINE INSULIN DISCONTINUED, BLOOD GLUCOSE REMAINS BELOW 150 TODAY. PATIENT COMPLAINING OF LEFT KNEE PAIN THIS EVENING, DR. JOSÉ CALLED AND NEW ORDER FOR OXYCODONE RECIEVED AND ADMINISTERED TO PATIENT. PATIENT'S DAUGHTER, FRANCI, UPDATED REGARDING PATIENT'S STATUS AND REQUESTED A PHONE CALL FROM CASE MANAGEMENT. DATA PROCESSING MECHANIC ATTEMPTED TO BE NOTIFIED, BUT NOT ON DUTY AT TIME OF PHOEN CALL, WILL ADDRESS IN THE AM. CALLED FRANCI TO INFORM HER DATA PROCESSING MECHANIC HAD LEFT FOR THE EVENING BUT WOULD HAVE HER CALL IN THE MORNING. PATIENT HAS A FRIEND AT BEDSIDE CURRENTLY, IV FLUIDS RUNNING PER ORDER. CURRENTLY ON LAST BAG OF NORMAL SALINE, WILL SALINE LOCK WHEN COMPLETE. NO OTHER CONCERNS AT THIS TIME.
[2024-08-16 19:37] VITALS: BP 147/89
[2024-08-16] MEDS ORDERED: NS 250 ML IV PRN (20:40)
--- NOTE | 2024-08-17 03:31 | NUR ---
SHIFT SUMMARY NO ACUTE EVENTS DURING THIS SHIFT. POOR URINE OUTPUT, PUREWICK IN PLACE. BED AT THE LOWEST POSITION, CALL LIGHT WITHIN REACH. PT IS A&O X3-4, CONFUSED AT TIMES. PT ABLE TO MAKE HER NEEDS KNOWN, AND COOPERATIVE WITH CARE. HS B. PT DENIES PAIN DURING THIS SHIFT.
[2024-08-17 04:49] VITALS: BP 137/89
[2024-08-17 06:32] LABS: BASOPHILS ABSOLUTE AUTO 0.06 K/mm3 (0.00-0.23); BASOPHILS PERCENT AUTO 0 % (0-2); EOSINOPHILS ABSOLUTE AUTO 0.35 K/mm3 (0.00-0.68); EOSINOPHILS PERCENT AUTO 2 % (0-6); Hematocrit 40.2 % (33.0-51.0); Hemoglobin 13.1 g/dL (11.5-16.0); IMMATURE GRAN ABSOLUTE AUTO 0.16 K/mm3 (0.00-0.10); IMMATURE GRAN PERCENT AUTO 1 % (0-1); LYMPHOCYTES ABSOLUTE AUTO 2.05 K/mm3 (0.84-5.20); LYMPHOCYTES PERCENT AUTO 14 % (21-46); MONOCYTES ABSOLUTE AUTO 1.39 K/mm3 (0.16-1.47); MONOCYTES PERCENT AUTO 10 % (4-13); Mean Corpuscular HGB 29.7 pg (26.0-34.0); Mean Corpuscular HGB Conc 32.6 g/dL (31.5-36.5); Mean Corpuscular Volume 91 fL (80-100); Mean Platelet Volume 8.9 fL (9.1-12.4); NEUTROPHILS ABSOLUTE AUTO 10.35 K/mm3 (1.96-9.15); NEUTROPHILS PERCENT AUTO 72 % (41-73); Platelet Count 422 K/mm3 (150-400); RDW Coefficient Variation 14.3 % (11.7-14.2); RDW Standard Deviation 47.9 fL (35.1-46.3); Red Blood Cell Count 4.41 M/mm3 (3.80-5.20); White Blood Cell Count 14.36 K/mm3 (4.00-11.30)
[2024-08-17 07:26] LABS: Albumin, Blood 2.2 g/dL (3.4-5.0); Albumin/Globulin Ratio 0.6 (0.8-1.8); Bilirubin, Total 0.4 mg/dL (0.1-1.0); Bun/Creatinine Ratio 34.7 (12.0-20.0); Calcium, Blood 10.6 mg/dL (8.5-10.1); Creatinine, Blood 0.66 mg/dL (0.40-1.00); Globulin, Blood 3.7 g/dL (2.2-4.0); Potassium, Blood 3.9 mmol/L (3.5-5.5); Total Protein, Blood 5.9 g/dL (6.4-8.2)
[2024-08-17 07:48] VITALS: BP 128/73
[2024-08-17 14:43] VITALS: BP 120/67
--- NOTE | 2024-08-17 19:08 | NUR ---
SHIFT SUMMARY PATIENT A/OX3-4, CONFUSED AND FORGETFUL AT TIMES. PATIENT COMPLAINING OF PAIN TO RIGHT KNEE AND LOWER ABDOMINAL PAIN, PRN OXYCODONE ADMINISTERED PER DEC. BILATERAL FOAM HEAL MEPILEX PLACED FOR PRESSURE INJURY PREVENTION. PATIENT CONTINUES WITH Q2 HOUR TURNS. PATIENT ASSESSED BY PHYSICAL THERAPY THIS MORNING. REPORT GIVEN TO HOME HEALTH ATTENDANT RN REGARDING NO BM THE LAST TWO DAYS, WILL FOLLOW UP. NO OTHER CONCERNS AT THIS TIME.
[2024-08-17 19:37] VITALS: BP 136/72
--- NOTE | 2024-08-18 03:26 | NUR ---
SHIFT SUMMARY NO ACUTE EVENTS DURING THIS SHIFT. MEDICATED WITH PRN OXYCODONE FOR C/O 04/19 KNEE PAIN. PT REPORTS EFFECTIVE. BED AT THE LOWEST POSITION, CALL LIGHT W/I REACH. PT IS ABLE TO MAKE HER NEEDS KNOWN AND IS COOPERATIVE WITH CARE.Q2HR REPOSITIONED IN BED.
[2024-08-18 03:41] VITALS: BP 118/74
[2024-08-18 05:16] LABS: BASOPHILS ABSOLUTE AUTO 0.05 K/mm3 (0.00-0.23); BASOPHILS PERCENT AUTO 0 % (0-2); EOSINOPHILS PERCENT AUTO 2 % (0-6); Hematocrit 38.3 % (33.0-51.0); Hemoglobin 12.6 g/dL (11.5-16.0); IMMATURE GRAN ABSOLUTE AUTO 0.19 K/mm3 (0.00-0.10); IMMATURE GRAN PERCENT AUTO 1 % (0-1); LYMPHOCYTES ABSOLUTE AUTO 2.08 K/mm3 (0.84-5.20); LYMPHOCYTES PERCENT AUTO 14 % (21-46); MONOCYTES ABSOLUTE AUTO 1.52 K/mm3 (0.16-1.47); MONOCYTES PERCENT AUTO 10 % (4-13); Mean Corpuscular HGB Conc 32.9 g/dL (31.5-36.5); Mean Corpuscular Volume 91 fL (80-100); Mean Platelet Volume 8.5 fL (9.1-12.4); NEUTROPHILS ABSOLUTE AUTO 10.61 K/mm3 (1.96-9.15); NEUTROPHILS PERCENT AUTO 72 % (41-73); Platelet Count 388 K/mm3 (150-400); RDW Coefficient Variation 14.1 % (11.7-14.2); RDW Standard Deviation 47.3 fL (35.1-46.3); White Blood Cell Count 14.75 K/mm3 (4.00-11.30)
[2024-08-18 05:54] LABS: Albumin, Blood 2.1 g/dL (3.4-5.0); Albumin/Globulin Ratio 0.6 (0.8-1.8); Bilirubin, Total 0.8 mg/dL (0.1-1.0); Bun/Creatinine Ratio 31.8 (12.0-20.0); Calcium, Blood 10.4 mg/dL (8.5-10.1); Creatinine, Blood 0.63 mg/dL (0.40-1.00); Globulin, Blood 3.7 g/dL (2.2-4.0); Potassium, Blood 3.9 mmol/L (3.5-5.5); Total Protein, Blood 5.8 g/dL (6.4-8.2)
[2024-08-18 07:20] VITALS: BP 127/82
[2024-08-18 15:09] VITALS: BP 132/79
--- NOTE | 2024-08-18 18:46 | NUR ---
SHIFT SUMMARY MS ENCARNACION IS ORIENTATED TO SELF, DATE, PLACE AND SITUATION WHEN ASKED, BUT IS VERY FORGETFUL AND SAYS CONFUSED COMMENTS THROUGHOUT THE DAY. SHE VOICED ANXIETY WHEN REPOSITIONED ABOUT FALLING AND ABOUT THE REPOSITIONING. GIVEN REASSURANCE AND TURNED WITH 2 STAFF ASSISTANCE BUT SHE PUSHES BACK THE OPPOSITE DIRECTION TO HOW SHE IS BEING TURNED. SHE IS ON AN EGGCRATE MATTRESS AND HAS BEEN TURNED AND REPOSITIONED WITH PILLOWS EVERY 2 HOURS BUT EACH TIME WITH PT VOICING A LOT OF RELUCTANCE. ATTEMPT TO USE HUYER LIFT TO GET PT UP TO CHAIR ABORTED PT REFUSED TO ALLOW US TO GET HER UP. HER SISTER WAS AT BEDSIDE ALSO GIVING HER REASSURANCE TO NO AVAIL. MEDICATED FOR LEFT KNEE PAIN WITH SOME EFFECT, MOSTLY JUST PAINFUL WHEN SHE MOVES. INCONTINENT OF URINE AND STOOL. BED LOW, CALL LIGHT IN REACH, BED ALARM ON.
[2024-08-18 19:21] VITALS: BP 150/81
[2024-08-19 02:45] VITALS: BP 120/99
--- NOTE | 2024-08-19 06:52 | NUR ---
SHIFT SUMMARY: Pt is admitted for UTI and is a full code. Is alert and able to make needs known. ADLs have been 2 when PT would allow ADLs. she refused turning by staff when offered through the night. She stated that here pain was low level when no one was doing anything with her. Declined any pain management when offered.
[2024-08-19 07:19] VITALS: BP 145/75
[2024-08-19 07:22] LABS: BASOPHILS ABSOLUTE AUTO 0.07 K/mm3 (0.00-0.23); BASOPHILS PERCENT AUTO 0 % (0-2); EOSINOPHILS ABSOLUTE AUTO 0.17 K/mm3 (0.00-0.68); EOSINOPHILS PERCENT AUTO 1 % (0-6); Hematocrit 40.3 % (33.0-51.0); Hemoglobin 13.4 g/dL (11.5-16.0); IMMATURE GRAN PERCENT AUTO 1 % (0-1); LYMPHOCYTES ABSOLUTE AUTO 1.99 K/mm3 (0.84-5.20); LYMPHOCYTES PERCENT AUTO 12 % (21-46); MONOCYTES ABSOLUTE AUTO 1.71 K/mm3 (0.16-1.47); MONOCYTES PERCENT AUTO 11 % (4-13); Mean Corpuscular HGB Conc 33.3 g/dL (31.5-36.5); Mean Corpuscular Volume 90 fL (80-100); Mean Platelet Volume 8.6 fL (9.1-12.4); NEUTROPHILS ABSOLUTE AUTO 12.13 K/mm3 (1.96-9.15); NEUTROPHILS PERCENT AUTO 75 % (41-73); Platelet Count 409 K/mm3 (150-400); RDW Coefficient Variation 13.9 % (11.7-14.2); Red Blood Cell Count 4.47 M/mm3 (3.80-5.20); White Blood Cell Count 16.27 K/mm3 (4.00-11.30)
[2024-08-19 08:01] LABS: Albumin, Blood 2.4 g/dL (3.4-5.0); Albumin/Globulin Ratio 0.6 (0.8-1.8); Bilirubin, Total 0.7 mg/dL (0.1-1.0); Bun/Creatinine Ratio 36.1 (12.0-20.0); Calcium, Blood 10.5 mg/dL (8.5-10.1); Creatinine, Blood 0.64 mg/dL (0.40-1.00); Globulin, Blood 4.1 g/dL (2.2-4.0); Phosphorus, Blood 2.1 mg/dL (2.5-4.9); Potassium, Blood 3.8 mmol/L (3.5-5.5); Total Protein, Blood 6.5 g/dL (6.4-8.2)
[2024-08-19] MEDS ORDERED: Vancomycin HCL 1,750 MG in NS 500 ML IV ONE (10:20)
[2024-08-19 16:30] VITALS: BP 141/73
--- NOTE | 2024-08-19 18:14 | NUR ---
PT PLEASANT TODAY. SOME CONFUSION IS NOTED. DAUGHTER IN TO VISIT AND REQUESTED UPDATE. DONE. ALSO SHE REQUESTED TALK TO DR MARCUS. HE DID CONSULT WITH HER ON PHONE. FAMILY PLEASED. NEW ABX STARTED TODAY. MED FOR PAIN THIS AFTERNOON. PT STATES GREATLY IMPROVED, STATES PAIN ALMOST GONE NOW. NO NEW CONCERNS NOTED. BED IN LOW POSITION, CALL LITE IN REACH, CALLS APPROP
[2024-08-19 19:08] VITALS: BP 136/90
[2024-08-19] MEDS ORDERED: Vancomycin HCL 1,250 MG in NS 250 ML IV SCH (22:00)
[2024-08-20 03:15] VITALS: BP 132/75
[2024-08-20 06:07] LABS: BASOPHILS ABSOLUTE AUTO 0.09 K/mm3 (0.00-0.23); BASOPHILS PERCENT AUTO 1 % (0-2); EOSINOPHILS ABSOLUTE AUTO 0.26 K/mm3 (0.00-0.68); EOSINOPHILS PERCENT AUTO 2 % (0-6); Hematocrit 39.3 % (33.0-51.0); Hemoglobin 12.6 g/dL (11.5-16.0); IMMATURE GRAN ABSOLUTE AUTO 0.16 K/mm3 (0.00-0.10); IMMATURE GRAN PERCENT AUTO 1 % (0-1); LYMPHOCYTES ABSOLUTE AUTO 1.77 K/mm3 (0.84-5.20); LYMPHOCYTES PERCENT AUTO 13 % (21-46); MONOCYTES ABSOLUTE AUTO 1.57 K/mm3 (0.16-1.47); MONOCYTES PERCENT AUTO 11 % (4-13); Mean Corpuscular HGB 29.4 pg (26.0-34.0); Mean Corpuscular HGB Conc 32.1 g/dL (31.5-36.5); Mean Corpuscular Volume 92 fL (80-100); Mean Platelet Volume 8.5 fL (9.1-12.4); NEUTROPHILS PERCENT AUTO 73 % (41-73); Platelet Count 365 K/mm3 (150-400); RDW Coefficient Variation 14.1 % (11.7-14.2); RDW Standard Deviation 47.5 fL (35.1-46.3); Red Blood Cell Count 4.28 M/mm3 (3.80-5.20); White Blood Cell Count 14.05 K/mm3 (4.00-11.30)
[2024-08-20 06:26] LABS: Albumin, Blood 2.1 g/dL (3.4-5.0); Albumin/Globulin Ratio 0.6 (0.8-1.8); Bilirubin, Total 0.7 mg/dL (0.1-1.0); Bun/Creatinine Ratio 40.5 (12.0-20.0); Calcium, Blood 10.2 mg/dL (8.5-10.1); Creatinine, Blood 0.52 mg/dL (0.40-1.00); Globulin, Blood 3.8 g/dL (2.2-4.0); Potassium, Blood 3.9 mmol/L (3.5-5.5); Total Protein, Blood 5.9 g/dL (6.4-8.2)
--- NOTE | 2024-08-20 06:29 | NUR ---
SHIFT SUMMARY: Pt is admitted for UTI and is a full code. Is alert and able to make needs known. ADLs have been 2p. Tejas denied pain or discomfort when asked while at rest. When doing ADL care she stated she was painful during cares and right after care complete she stated she was not in pain anymore. When offered something for pain management before and after cares she declined stating that she was not in pain at that time and did not need it. When offered before care it was explained that it was to help lessen the discomfort during cares. She stated she would be ok and just get it done and over with.
[2024-08-20 07:46] VITALS: BP 127/74
[2024-08-20] MEDS ORDERED: Linezolid 600MG/Iso-Dext 300ML 300 ML IV SCH (09:00)
[2024-08-20] MEDS ORDERED: AmLODIPine Besylate 5 MG Tab PO SCH (11:00)
[2024-08-20 11:39] VITALS: BP 140/87
[2024-08-20 14:48] VITALS: BP 130/86
--- NOTE | 2024-08-20 16:34 | NUR ---
PT QUITE PLEASANT TODAY. DID MEDICATE FOR PAIN ONCE TODAY. SISTER WAS IN TO VISIT TODAY. SHE STATES WAS AN RN. VERY PLEASANT. SHE SAT WITH HER FOR SOME TIME VISITING. HAVE NOT SEEN PT DAUGHTER TODAY. DR DID CHANGE ABX TODAY. NO OTHER NEW CONCERNS NOTED. BED IN LOW POSITION, CALL LITE IN REACH, CALLS APPROP
[2024-08-20 19:38] VITALS: BP 155/84
[2024-08-21 02:21] VITALS: BP 155/89
[2024-08-21 05:47] LABS: BASOPHILS ABSOLUTE AUTO 0.09 K/mm3 (0.00-0.23); BASOPHILS PERCENT AUTO 1 % (0-2); EOSINOPHILS PERCENT AUTO 3 % (0-6); Hematocrit 38.2 % (33.0-51.0); Hemoglobin 12.5 g/dL (11.5-16.0); IMMATURE GRAN ABSOLUTE AUTO 0.16 K/mm3 (0.00-0.10); IMMATURE GRAN PERCENT AUTO 1 % (0-1); LYMPHOCYTES ABSOLUTE AUTO 1.66 K/mm3 (0.84-5.20); LYMPHOCYTES PERCENT AUTO 12 % (21-46); MONOCYTES ABSOLUTE AUTO 1.46 K/mm3 (0.16-1.47); MONOCYTES PERCENT AUTO 10 % (4-13); Mean Corpuscular HGB Conc 32.7 g/dL (31.5-36.5); Mean Corpuscular Volume 92 fL (80-100); Mean Platelet Volume 8.6 fL (9.1-12.4); NEUTROPHILS ABSOLUTE AUTO 10.48 K/mm3 (1.96-9.15); NEUTROPHILS PERCENT AUTO 74 % (41-73); Platelet Count 353 K/mm3 (150-400); RDW Coefficient Variation 14.3 % (11.7-14.2); Red Blood Cell Count 4.17 M/mm3 (3.80-5.20); White Blood Cell Count 14.25 K/mm3 (4.00-11.30)
--- NOTE | 2024-08-21 06:02 | NUR ---
SHIFT SUMMARY: Pt is admitted for UTI and is a full code. Is alert and able to make needs known. ADLs have been 2p. Pain was managed with PRN medication and positioning.
[2024-08-21 06:19] LABS: C-REACTIVE PROTEIN, EXT RANGE 6.24 mg/dL (0.000-0.300)
[2024-08-21 06:21] LABS: Albumin/Globulin Ratio 0.5 (0.8-1.8); Bilirubin, Total 0.7 mg/dL (0.1-1.0); Bun/Creatinine Ratio 36.3 (12.0-20.0); Calcium, Blood 10.4 mg/dL (8.5-10.1); Creatinine, Blood 0.52 mg/dL (0.40-1.00); Potassium, Blood 3.9 mmol/L (3.5-5.5)
[2024-08-21 07:17] VITALS: BP 129/75
[2024-08-21 15:00] VITALS: BP 132/75
--- NOTE | 2024-08-21 19:13 | NUR ---
END OF SHIFT SUMMARY: A&Ox2-3. PLEASANT AND COOPERATIVE WITH CARE. DOES NO CALL TO ADVOCATE NEEDS. PAINFUL DURING LOG ROLL FOR CHANGE. SOME EXCORIATIONS; POWDER APPLIED AND FREQUENT GARRY CARE PROVIDED. INCONTINENT OF BOWEL AND BLADDER. LBM TODAY. MEDS WHOLE WITH FLUIDS. FAMILY IN TO SEE HER TODAY. URINE CULTURE GREW OUT POSITIVE VRE; ISOLATION PRECAUTIONS ESTABLISHED. BED IN LOWEST POSITION. CALL LIGHT WITHIN REACH. ALL NEEDS MET. REPORT TO ONCOMING NURSE.
[2024-08-21 19:41] VITALS: BP 136/70
[2024-08-22 02:15] VITALS: BP 117/74
--- NOTE | 2024-08-22 06:23 | NUR ---
NOC SUMMARY- NO NEW ISSUES NOTED. PT BRIEF CHANGED NEEDED. PT REPOSITIONED ORDERED. PT PAIN MANAGED PER DEC WITH RELIEF. COCCYX MEPILEX IN PLACE. BARRIER CREAM APPLIED. CALL LIGHT IN REACH AND BED ALARM ON.
[2024-08-22 06:44] LABS: BASOPHILS ABSOLUTE AUTO 0.07 K/mm3 (0.00-0.23); BASOPHILS PERCENT AUTO 1 % (0-2); EOSINOPHILS ABSOLUTE AUTO 0.33 K/mm3 (0.00-0.68); EOSINOPHILS PERCENT AUTO 2 % (0-6); Hematocrit 38.6 % (33.0-51.0); Hemoglobin 12.3 g/dL (11.5-16.0); IMMATURE GRAN ABSOLUTE AUTO 0.14 K/mm3 (0.00-0.10); IMMATURE GRAN PERCENT AUTO 1 % (0-1); LYMPHOCYTES ABSOLUTE AUTO 1.88 K/mm3 (0.84-5.20); LYMPHOCYTES PERCENT AUTO 13 % (21-46); MONOCYTES ABSOLUTE AUTO 1.51 K/mm3 (0.16-1.47); MONOCYTES PERCENT AUTO 11 % (4-13); Mean Corpuscular HGB 29.3 pg (26.0-34.0); Mean Corpuscular HGB Conc 31.9 g/dL (31.5-36.5); Mean Corpuscular Volume 92 fL (80-100); Mean Platelet Volume 9.1 fL (9.1-12.4); NEUTROPHILS ABSOLUTE AUTO 10.47 K/mm3 (1.96-9.15); NEUTROPHILS PERCENT AUTO 73 % (41-73); Platelet Count 385 K/mm3 (150-400); RDW Standard Deviation 47.3 fL (35.1-46.3)
[2024-08-22 07:16] LABS: Albumin/Globulin Ratio 0.5 (0.8-1.8); Bilirubin, Total 0.7 mg/dL (0.1-1.0); Bun/Creatinine Ratio 31.7 (12.0-20.0); Calcium, Blood 10.1 mg/dL (8.5-10.1); Creatinine, Blood 0.6 mg/dL (0.40-1.00); Globulin, Blood 3.8 g/dL (2.2-4.0); Total Protein, Blood 5.8 g/dL (6.4-8.2)
[2024-08-22 07:30] VITALS: BP 132/79
[2024-08-22] MEDS ORDERED: Dose Adjust by Pharmacy XX STA (08:42)
[2024-08-22] MEDS ORDERED: Polyethylene Glycol 3350 17 gm PO PRN (09:00)
[2024-08-22] MEDS ORDERED: Docusate Sodium 100 MG Cap PO SCH (09:00)
[2024-08-22] MEDS ORDERED: Linezolid 600 MG Tab PO SCH (09:00)
[2024-08-22 15:31] VITALS: BP 130/91
--- NOTE | 2024-08-22 18:41 | NUR ---
END OF SHIFT SUMMARY: A&Ox4. MORE CONFUSION NOTED TODAY THAT YESTERDAY. DOES NOT USE CALL LIGHT AND IS UNABLE TO ADVOCATE NEEDS EFFECTIVELY. BEGRUDGINGLY SPENT MUCH OF THE DAY IN HER RECLINER, BUT DECLINED TO WORK WITH PT/OT. INCONTINENT OF BOWEL AND BLADDER. LARGE BOWEL MOVEMENT TODAY. MEDS WHOLE WITH FLUIDS. IV ABx LENZOLID CHANGED TO PO. NO OTHER NEW SHIFT EVENTS. BED IN LOWEST POSITION. CALL LIGHT WITHIN REACH. ALL NEEDS MET. REPORT TO ONCOMING NURSE.
[2024-08-22 21:35] VITALS: BP 136/81
[2024-08-23 05:26] VITALS: BP 130/75
[2024-08-23 06:12] LABS: BASOPHILS ABSOLUTE AUTO 0.08 K/mm3 (0.00-0.23); BASOPHILS PERCENT AUTO 1 % (0-2); EOSINOPHILS ABSOLUTE AUTO 0.21 K/mm3 (0.00-0.68); EOSINOPHILS PERCENT AUTO 1 % (0-6); Hematocrit 40.5 % (33.0-51.0); Hemoglobin 13.2 g/dL (11.5-16.0); IMMATURE GRAN ABSOLUTE AUTO 0.17 K/mm3 (0.00-0.10); IMMATURE GRAN PERCENT AUTO 1 % (0-1); LYMPHOCYTES ABSOLUTE AUTO 2.14 K/mm3 (0.84-5.20); LYMPHOCYTES PERCENT AUTO 14 % (21-46); MONOCYTES ABSOLUTE AUTO 1.61 K/mm3 (0.16-1.47); MONOCYTES PERCENT AUTO 10 % (4-13); Mean Corpuscular HGB 29.8 pg (26.0-34.0); Mean Corpuscular HGB Conc 32.6 g/dL (31.5-36.5); Mean Corpuscular Volume 91 fL (80-100); Mean Platelet Volume 9.2 fL (9.1-12.4); NEUTROPHILS PERCENT AUTO 73 % (41-73); Platelet Count 373 K/mm3 (150-400); Red Blood Cell Count 4.43 M/mm3 (3.80-5.20); White Blood Cell Count 15.61 K/mm3 (4.00-11.30)
--- NOTE | 2024-08-23 06:33 | NUR ---
NOC SUMMARY- PT MORE CONFUSED. PT HAS SLEPT FOR MOST OF SHIFT. PT REPOSIONED ORDERED. BRIEF CHANGED NEEDED. PT HAS HAD SOME PO FLUIDS. IS VOIDING. PT HAD NO PAIN ISSUES. PT CURRENTLY RESTING QUIETLY. CALL LIGHT IN REACH AND BED ALARM ON.
[2024-08-23 06:45] LABS: Albumin, Blood 2.1 g/dL (3.4-5.0); Albumin/Globulin Ratio 0.5 (0.8-1.8); Bilirubin, Total 0.6 mg/dL (0.1-1.0); Bun/Creatinine Ratio 29.7 (12.0-20.0); Calcium, Blood 10.7 mg/dL (8.5-10.1); Creatinine, Blood 0.61 mg/dL (0.40-1.00); Magnesium, Blood 2.1 mg/dL (1.6-2.4); Potassium, Blood 3.9 mmol/L (3.5-5.5); Total Protein, Blood 6.1 g/dL (6.4-8.2)
[2024-08-23 07:21] VITALS: BP 145/74
[2024-08-23 15:06] VITALS: BP 132/84
[2024-08-23 19:42] VITALS: BP 148/95
--- NOTE | 2024-08-23 19:55 | NUR ---
REPORT RECEIVED VERIFIED. A/O X2-3 PT HAS SOME HALLUCINATIONS, BUT IS PLEASENT AND COOPERATIVE WITH CARE. PT WAS TRANSFERED TO [facility]. THROUGHOUT SHIFT PT DID WELL WAS ABLE TO USE CALL LIGHT AND MAKE NEEDS KNOWN. DAUGHTER AT BEDSIDE CONCERNED WITH PT PROGRESSION AND I ENC MD TO GIVE DAUGHTER A CALL.
[2024-08-24 02:56] VITALS: BP 115/99
--- NOTE | 2024-08-24 04:38 | NUR ---
SHIFT SUMMARY PATIENT HAD NO ACUTE CHANGES. AXOX 2 AND BEDREST, LIFT PATIENT. PIV INTACT. IV ABX INFUSED. DENIES CHEST PAIN, SOB, AND N/V. VSS/AFEBRILE. REPORTS DOES NOT WATCH TV. SLEPT MOST OF SHIFT. CALL LIGHT IN REACH. BED IN LOWEST POSITION AND ALARM ACITVATED. WILL CONTINUE TO MONITOR UNTIL DAY SHIFT NURSE ASSUMES CARE.
[2024-08-24 05:50] LABS: BASOPHILS ABSOLUTE AUTO 0.08 K/mm3 (0.00-0.23); BASOPHILS PERCENT AUTO 1 % (0-2); EOSINOPHILS ABSOLUTE AUTO 0.21 K/mm3 (0.00-0.68); EOSINOPHILS PERCENT AUTO 1 % (0-6); Hematocrit 38.9 % (33.0-51.0); Hemoglobin 12.7 g/dL (11.5-16.0); IMMATURE GRAN ABSOLUTE AUTO 0.14 K/mm3 (0.00-0.10); IMMATURE GRAN PERCENT AUTO 1 % (0-1); LYMPHOCYTES ABSOLUTE AUTO 1.81 K/mm3 (0.84-5.20); LYMPHOCYTES PERCENT AUTO 11 % (21-46); MONOCYTES ABSOLUTE AUTO 1.39 K/mm3 (0.16-1.47); MONOCYTES PERCENT AUTO 9 % (4-13); Mean Corpuscular HGB 29.8 pg (26.0-34.0); Mean Corpuscular HGB Conc 32.6 g/dL (31.5-36.5); Mean Corpuscular Volume 91 fL (80-100); Mean Platelet Volume 9.2 fL (9.1-12.4); NEUTROPHILS ABSOLUTE AUTO 12.52 K/mm3 (1.96-9.15); NEUTROPHILS PERCENT AUTO 78 % (41-73); Platelet Count 398 K/mm3 (150-400); RDW Standard Deviation 46.9 fL (35.1-46.3); Red Blood Cell Count 4.26 M/mm3 (3.80-5.20); White Blood Cell Count 16.15 K/mm3 (4.00-11.30)
[2024-08-24 06:08] LABS: 25-HYDROXYVITAMIN D2 <1.0 ng/mL; 25-HYDROXYVITAMIN D2 D3 TOTAL 39.5 ng/mL (30.0-80.0); 25-HYDROXYVITAMIN D3 39.5 ng/mL
[2024-08-24 06:41] LABS: Albumin/Globulin Ratio 0.5 (0.8-1.8); Bilirubin, Total 0.7 mg/dL (0.1-1.0); Bun/Creatinine Ratio 29.1 (12.0-20.0); Calcium, Blood 10.4 mg/dL (8.5-10.1); Creatinine, Blood 0.65 mg/dL (0.40-1.00); Globulin, Blood 3.9 g/dL (2.2-4.0); Potassium, Blood 3.8 mmol/L (3.5-5.5); Total Protein, Blood 5.9 g/dL (6.4-8.2)
[2024-08-24 07:13] VITALS: BP 131/79
[2024-08-24 16:20] VITALS: BP 131/82
--- NOTE | 2024-08-24 19:19 | NUR ---
no change in pt cond, pt still pleasently confused and needs continual enc to eat or drink. pt transfered via sling to chair and after a couple hours was transfered back to bed. dressing changed to buttocks per orders and pt was turned q2.
[2024-08-24 20:27] VITALS: BP 126/81
[2024-08-25 04:30] VITALS: BP 127/81
--- NOTE | 2024-08-25 04:45 | NUR ---
SHIFT SUMMARY PATIENT HAD NO ACUTE CHANGES. AXOX 2 AND BEDREST/LIFT ROOM. PIV INTACT. IV ABX INFUSED. DENIES CHEST PAIN, SOB, AND N/V. VSS/AFEBRILE. COOPERATIVE WITH CARE. PATIENT MENTATION SLIGHTLY IMPROVED FROM LAST NOC SHIFT REMEBERING PREVIOUS CONVERSATIONS. CALL LIGHT IN REACH. BED IN LOWEST POSITION. WILL CONTINUE TO MONITOR UNTIL DAY SHIFT NURSE ASSUMES CARE.
[2024-08-25 06:44] LABS: BASOPHILS ABSOLUTE AUTO 0.09 K/mm3 (0.00-0.23); BASOPHILS PERCENT AUTO 0 % (0-2); EOSINOPHILS ABSOLUTE AUTO 0.22 K/mm3 (0.00-0.68); EOSINOPHILS PERCENT AUTO 1 % (0-6); Hematocrit 40.8 % (33.0-51.0); Hemoglobin 13.4 g/dL (11.5-16.0); IMMATURE GRAN ABSOLUTE AUTO 0.12 K/mm3 (0.00-0.10); IMMATURE GRAN PERCENT AUTO 1 % (0-1); LYMPHOCYTES ABSOLUTE AUTO 1.94 K/mm3 (0.84-5.20); LYMPHOCYTES PERCENT AUTO 10 % (21-46); MONOCYTES ABSOLUTE AUTO 1.38 K/mm3 (0.16-1.47); MONOCYTES PERCENT AUTO 7 % (4-13); Mean Corpuscular HGB 29.8 pg (26.0-34.0); Mean Corpuscular HGB Conc 32.8 g/dL (31.5-36.5); Mean Corpuscular Volume 91 fL (80-100); Mean Platelet Volume 8.9 fL (9.1-12.4); NEUTROPHILS ABSOLUTE AUTO 16.32 K/mm3 (1.96-9.15); NEUTROPHILS PERCENT AUTO 81 % (41-73); Platelet Count 441 K/mm3 (150-400); RDW Coefficient Variation 13.9 % (11.7-14.2); RDW Standard Deviation 46.3 fL (35.1-46.3); Red Blood Cell Count 4.49 M/mm3 (3.80-5.20); White Blood Cell Count 20.07 K/mm3 (4.00-11.30)
[2024-08-25 07:06] LABS: Magnesium, Blood 2.1 mg/dL (1.6-2.4)
[2024-08-25 07:14] LABS: Albumin/Globulin Ratio 0.5 (0.8-1.8); Bilirubin, Total 0.7 mg/dL (0.1-1.0); Bun/Creatinine Ratio 31.5 (12.0-20.0); Calcium, Blood 10.5 mg/dL (8.5-10.1); Creatinine, Blood 0.67 mg/dL (0.40-1.00); Globulin, Blood 4.2 g/dL (2.2-4.0); Potassium, Blood 3.8 mmol/L (3.5-5.5); Total Protein, Blood 6.2 g/dL (6.4-8.2)
[2024-08-25 07:22] VITALS: BP 141/85
[2024-08-25 11:25] LABS: SARS-Cov-2 (COVID-19) PCR, MMC NEGATIVE (NEGATIVE)
[2024-08-25 16:37] VITALS: BP 135/87
--- NOTE | 2024-08-25 17:00 | NUR ---
SHIFT SUMMARY PT RESTING QUIETLY AT START OF SHIFT. WOKE EASILY FOR CARE. PT ASSISTED TO RECLINER AT BS VIA LIFT FOR BREAKFAST. PT RETURNED TO BED FOR CHANGING AND THEN BACK TO CHAIR. PT TAKEN DOWN TO IMAGING FOR CT AT THIS TIME. PT IS CONFUSED AND DOES BECOME IRRITABLE AND UNCO-OP AT TIMES, ESPECIALLY IN AFTERNOON. PT TO D/C TO [facility] TOMORROW. COVID SWAB COMPLETE; NEG RESULTS. PT IS INCONTINENT OF BOWEL AND BLADDER. LOOSE STOOLS X3 TODAY. RICK HELD THIS AM. DAUGHTER IN TO VISIT EARLIER TODAY. GAME AND FISH PROTECTOR TO ASSIST WITH TX TOMORROW.
[2024-08-25 20:47] VITALS: BP 140/76
[2024-08-26 03:45] VITALS: BP 135/81
--- NOTE | 2024-08-26 05:33 | NUR ---
SHIFT SUMMARY NOC PT A/O TO SELF. PLEASANTLY CONFUSED AND COOPERATIVE WITH CARE. HR TACHY IN LOW 100'S. PT HAD SMALL INCONTINENT FORMED BM. PT EXPECTED TO DISCHARGE TO [facility] TODAY. PT CURRENTLY RESTING WITH BED ALARM ON, BED IN LOWEST POSITION, AND CALL LIGHT WITHIN REACH.
[2024-08-26 06:05] LABS: BASOPHILS ABSOLUTE AUTO 0.08 K/mm3 (0.00-0.23); BASOPHILS PERCENT AUTO 0 % (0-2); EOSINOPHILS ABSOLUTE AUTO 0.18 K/mm3 (0.00-0.68); EOSINOPHILS PERCENT AUTO 1 % (0-6); Hematocrit 40.8 % (33.0-51.0); Hemoglobin 13.4 g/dL (11.5-16.0); IMMATURE GRAN ABSOLUTE AUTO 0.14 K/mm3 (0.00-0.10); IMMATURE GRAN PERCENT AUTO 1 % (0-1); LYMPHOCYTES ABSOLUTE AUTO 1.59 K/mm3 (0.84-5.20); LYMPHOCYTES PERCENT AUTO 7 % (21-46); MONOCYTES ABSOLUTE AUTO 1.43 K/mm3 (0.16-1.47); MONOCYTES PERCENT AUTO 6 % (4-13); Mean Corpuscular HGB 29.5 pg (26.0-34.0); Mean Corpuscular HGB Conc 32.8 g/dL (31.5-36.5); Mean Corpuscular Volume 90 fL (80-100); Mean Platelet Volume 8.9 fL (9.1-12.4); NEUTROPHILS ABSOLUTE AUTO 19.74 K/mm3 (1.96-9.15); NEUTROPHILS PERCENT AUTO 85 % (41-73); Platelet Count 438 K/mm3 (150-400); RDW Coefficient Variation 14.1 % (11.7-14.2); RDW Standard Deviation 46.2 fL (35.1-46.3); Red Blood Cell Count 4.54 M/mm3 (3.80-5.20); White Blood Cell Count 23.16 K/mm3 (4.00-11.30)
[2024-08-26 06:40] LABS: Albumin/Globulin Ratio 0.5 (0.8-1.8); Bilirubin, Total 0.6 mg/dL (0.1-1.0); Bun/Creatinine Ratio 35.8 (12.0-20.0); Calcium, Blood 10.5 mg/dL (8.5-10.1); Creatinine, Blood 0.76 mg/dL (0.40-1.00); Potassium, Blood 3.9 mmol/L (3.5-5.5)
[2024-08-26 07:16] VITALS: BP 138/91
--- NOTE | 2024-08-26 12:59 | NUR ---
NOTE: PER DR. WOODARD, OKAY TO DISCONTINUE ACCUCHECKS AND INSULIN. THE PT HAS HAD CBG'S UNDER 150 CONSISTENTLY, DR. WOODARD AGREED.
[2024-08-26 16:51] VITALS: BP 125/87
--- NOTE | 2024-08-26 17:25 | NUR ---
SHIFT SUMMARY PT AO TO PERSON, SELF. DOES NOT CALL, SLEPT MOST OF THE SHIFT. UP TO THE CHAIR BY LIFT THIS EVENING. MARICRUZ STOPPED FOR PARACENTESIS ON WEDNESDAY. PT MADE AWARE. DRESSING TO COCCYX CHANGED THIS SHIFT, SHE WAS ALSO REPOSITIONED THROUGHOUT THE SHIFT. NO COMPLAINTS BY THE PT. SHE HAS A LOW APPETITE. CALL LIGHT WITHIN REACH, BED LOCKED AND IN THE LOWEST POSITION. WILL REPORT TO ONCOMING NURSE.
[2024-08-26 19:27] VITALS: BP 141/89
--- NOTE | 2024-08-27 04:36 | NUR ---
SHIFT SUMMARY NOC PT A/O X 2. IRRITABLE AT TIMES, BUT COOPERATIVE WITH CARE. PT TACHYCARDIC BRIEFLY AFTER CHANGING BRIEF. PT WAS FOUND TO HAVE FLUID IN ABD AND WILL HAVE PARACENTESIS PERFORMED WEDNESDAY. PT BLE PAIN MANAGED PER EMAR. MEPILEX DRESSING ON COCCYX C/D/I. PT CURRENTLY RESTING WITH BED ALARM ON, BED IN LOWEST POSITION, AND CALL LIGHT WITHIN REACH.
[2024-08-27 05:18] VITALS: BP 119/74
[2024-08-27] MEDS ORDERED: NS 1,000 ML IV SCH (05:45)
--- NOTE | 2024-08-27 06:14 | NUR ---
PT HAD C/O NOT FEELING RIGHT VS CHECKED AND PT TACHYCARDIC IN 110'S-120'S, WBC YESTERDAY MORNING WENT FROM 20.0 TO 23.0. CBG 105. HOSPITALIST NOTIFIED AND ORDER FOR NS @ 75 ML/HR X 1 BAG, AND LACTIC ACID LAB ORDERED.
[2024-08-27 06:21] LABS: BASOPHILS ABSOLUTE AUTO 0.09 K/mm3 (0.00-0.23); BASOPHILS PERCENT AUTO 0 % (0-2); EOSINOPHILS ABSOLUTE AUTO 0.15 K/mm3 (0.00-0.68); EOSINOPHILS PERCENT AUTO 1 % (0-6); Hematocrit 41.6 % (33.0-51.0); Hemoglobin 13.4 g/dL (11.5-16.0); IMMATURE GRAN ABSOLUTE AUTO 0.14 K/mm3 (0.00-0.10); IMMATURE GRAN PERCENT AUTO 1 % (0-1); LYMPHOCYTES ABSOLUTE AUTO 1.81 K/mm3 (0.84-5.20); LYMPHOCYTES PERCENT AUTO 8 % (21-46); MONOCYTES ABSOLUTE AUTO 1.28 K/mm3 (0.16-1.47); MONOCYTES PERCENT AUTO 6 % (4-13); Mean Corpuscular HGB 29.3 pg (26.0-34.0); Mean Corpuscular HGB Conc 32.2 g/dL (31.5-36.5); Mean Corpuscular Volume 91 fL (80-100); Mean Platelet Volume 8.5 fL (9.1-12.4); NEUTROPHILS ABSOLUTE AUTO 19.02 K/mm3 (1.96-9.15); NEUTROPHILS PERCENT AUTO 85 % (41-73); Platelet Count 384 K/mm3 (150-400); RDW Coefficient Variation 14.2 % (11.7-14.2); RDW Standard Deviation 47.3 fL (35.1-46.3); Red Blood Cell Count 4.57 M/mm3 (3.80-5.20); White Blood Cell Count 22.49 K/mm3 (4.00-11.30)
[2024-08-27 06:56] LABS: Albumin, Blood 1.9 g/dL (3.4-5.0); Albumin/Globulin Ratio 0.5 (0.8-1.8); Bilirubin, Total 0.6 mg/dL (0.1-1.0); Bun/Creatinine Ratio 34.7 (12.0-20.0); Creatinine, Blood 0.87 mg/dL (0.40-1.00); Globulin, Blood 3.9 g/dL (2.2-4.0); Potassium, Blood 4.1 mmol/L (3.5-5.5); Total Protein, Blood 5.8 g/dL (6.4-8.2)
[2024-08-27 07:50] VITALS: BP 124/76
[2024-08-27 16:19] VITALS: BP 113/79
--- NOTE | 2024-08-27 19:37 | NUR ---
SHIFT SUMMARY PT LIFT ASSIST OR 2 MAX ASSIST. SAT UP FOR MEDS. BED BATH GIVEN TODAY. PRN OXY GIVEN FOR PAIN TO LEGS WITH REPORTED RELIEF. REPOSITIONED Q2
[2024-08-27 20:43] VITALS: BP 132/82
[2024-08-28 03:34] VITALS: BP 125/74
--- NOTE | 2024-08-28 05:47 | NUR ---
SHIFT SUMMARY PATIENT IS ALERT BUT NOT ORIENTED. PATIENT HAS HAD NO ACUTE EVENTS THIS SHIFT. VITAL SIGNS REVIEWED. PATIENT HAS NO COMPLAINTS OF PAIN, NAUSEA, SOB OR VOMITTING. PATIENT HAS BEEN A TOTAL CARE PATIENT. PATIENT HAS BEEN TURNED Q2. BED IN LOCKED AND LOWEST POSITION. CALL LIGHT IN PLACE. WILL MONITOR UNTIL SHIFT CHANGE.
[2024-08-28 06:20] LABS: BASOPHILS ABSOLUTE AUTO 0.08 K/mm3 (0.00-0.23); BASOPHILS PERCENT AUTO 0 % (0-2); EOSINOPHILS ABSOLUTE AUTO 0.23 K/mm3 (0.00-0.68); EOSINOPHILS PERCENT AUTO 1 % (0-6); Hemoglobin 12.8 g/dL (11.5-16.0); IMMATURE GRAN ABSOLUTE AUTO 0.12 K/mm3 (0.00-0.10); IMMATURE GRAN PERCENT AUTO 1 % (0-1); LYMPHOCYTES ABSOLUTE AUTO 1.76 K/mm3 (0.84-5.20); LYMPHOCYTES PERCENT AUTO 9 % (21-46); MONOCYTES ABSOLUTE AUTO 1.16 K/mm3 (0.16-1.47); MONOCYTES PERCENT AUTO 6 % (4-13); Mean Corpuscular HGB 29.6 pg (26.0-34.0); Mean Corpuscular HGB Conc 32.8 g/dL (31.5-36.5); Mean Corpuscular Volume 90 fL (80-100); Mean Platelet Volume 8.7 fL (9.1-12.4); NEUTROPHILS ABSOLUTE AUTO 16.28 K/mm3 (1.96-9.15); NEUTROPHILS PERCENT AUTO 83 % (41-73); Platelet Count 375 K/mm3 (150-400); RDW Coefficient Variation 14.1 % (11.7-14.2); RDW Standard Deviation 46.5 fL (35.1-46.3); Red Blood Cell Count 4.33 M/mm3 (3.80-5.20); White Blood Cell Count 19.63 K/mm3 (4.00-11.30)
[2024-08-28 06:50] LABS: Albumin, Blood 1.8 g/dL (3.4-5.0); Albumin/Globulin Ratio 0.5 (0.8-1.8); Bilirubin, Total 0.5 mg/dL (0.1-1.0); Bun/Creatinine Ratio 35.2 (12.0-20.0); Calcium, Blood 10.6 mg/dL (8.5-10.1); Creatinine, Blood 0.82 mg/dL (0.40-1.00); Globulin, Blood 3.6 g/dL (2.2-4.0); Magnesium, Blood 2.1 mg/dL (1.6-2.4); Total Protein, Blood 5.4 g/dL (6.4-8.2)
[2024-08-28 07:10] VITALS: BP 127/76
[2024-08-28 08:33] LABS: International Normalized Ratio 1.18; Prothrombin Time Results 12.5 Sec (9.7-11.5)
[2024-08-28 15:31] LABS: Automated BF RBC Count 0.003 M/mm3 (0-0); Automated BF WBC Count 1.109 K/mm3 (0-999)
[2024-08-28 15:34] LABS: Body Fluid WBC Count 1109 /mm3 (0-999); RBC Count, Body Fluid 3000 /mm3 (0-0)
[2024-08-28] MEDS ORDERED: Albumin (Human) 25gm/100ml 100 ML IV SCH (15:35)
[2024-08-28 15:47] LABS: Albumin, Body Fluid 1.6 g/dL; Lactate Dehydrogenase, Body Fl 244 U/L; Protein, Body Fluid 3.8 g/dL
[2024-08-28 15:48] VITALS: BP 110/83
--- NOTE | 2024-08-28 17:19 | NUR ---
SHIFT SUMMARY: PT AOX3/4 CONFUSED AND REPEATS QUESTIONS, BUT PLEASANT AND REDIRECTABLE. ABLE TO FOLLOW SOME BASIC COMMANDS BUT FORGETS. TOLERATING MEDICCATIONS WELL. WENT FOR PARACENTISIS AND GOT 6.7L TAKEN OUT. SAID SHE FELT BETTER AFTER THE PROCEDURE. LIFT USED TO GET HER IN AND OUT OF GURNEY. TOLERATING IV MEDICATION WELL. SOME NAUSEUA, MEDICATED PER EMR. RESTING IN BED, WATCHING TV, BED IN LOWEST POSITION, AND CALL LIGHT IN REACH. CONTNUING CARE.
[2024-08-28 17:28] LABS: Color, Body Fluid Yellow (None-Yellow); Total Cell Count, Body Fluid 100
[2024-08-28 17:29] LABS: Appearance, Body Fluid Hazy (Clear)
--- NOTE | 2024-08-28 17:46 | NUR ---
THIS BUSINESS DEPARTMENT CHAIR HAS REVIEWED AND AGREES WITH ALL NOTES AND ASSESSMENTS BY DULCE WILSON.
[2024-08-28 20:01] VITALS: BP 106/67
[2024-08-29 03:14] VITALS: BP 103/74
--- NOTE | 2024-08-29 04:14 | NUR ---
SHIFT SUMMARY ADMITTED FOR AMS/UTI. FULL CODE. PLAN IS FOR ANTIB RX. ON REGULAR DIET. LIFT PATIENT. PARACENTESIS YESTERDAY CHICO OUT 6.7 LITERS. ON RA. INCONTINENT. SHE AGREES ONLY TO ORAL PILLS THIS SHIFT AND IS REFUSING A NEW IV. SHE PULLED OUT HER PREVIOUS IV PRIOR TO THIS SHIFT.
[2024-08-29 06:28] LABS: BASOPHILS ABSOLUTE AUTO 0.07 K/mm3 (0.00-0.23); BASOPHILS PERCENT AUTO 0 % (0-2); EOSINOPHILS ABSOLUTE AUTO 0.25 K/mm3 (0.00-0.68); EOSINOPHILS PERCENT AUTO 1 % (0-6); Hematocrit 39.4 % (33.0-51.0); Hemoglobin 12.8 g/dL (11.5-16.0); IMMATURE GRAN PERCENT AUTO 1 % (0-1); LYMPHOCYTES ABSOLUTE AUTO 1.51 K/mm3 (0.84-5.20); LYMPHOCYTES PERCENT AUTO 9 % (21-46); MONOCYTES ABSOLUTE AUTO 1.21 K/mm3 (0.16-1.47); MONOCYTES PERCENT AUTO 7 % (4-13); Mean Corpuscular HGB Conc 32.5 g/dL (31.5-36.5); Mean Corpuscular Volume 92 fL (80-100); Mean Platelet Volume 8.9 fL (9.1-12.4); NEUTROPHILS ABSOLUTE AUTO 14.11 K/mm3 (1.96-9.15); NEUTROPHILS PERCENT AUTO 82 % (41-73); Platelet Count 313 K/mm3 (150-400); RDW Coefficient Variation 14.2 % (11.7-14.2); RDW Standard Deviation 48.3 fL (35.1-46.3); Red Blood Cell Count 4.27 M/mm3 (3.80-5.20); White Blood Cell Count 17.25 K/mm3 (4.00-11.30)
[2024-08-29 06:59] LABS: Bun/Creatinine Ratio 38.4 (12.0-20.0); Calcium, Blood 10.3 mg/dL (8.5-10.1); Creatinine, Blood 0.76 mg/dL (0.40-1.00); Potassium, Blood 3.9 mmol/L (3.5-5.5)
[2024-08-29 07:40] VITALS: BP 119/68
[2024-08-29] MEDS ORDERED: Apixaban 5 MG Tab PO SCH (09:00)
[2024-08-29 16:48] VITALS: BP 117/76
--- NOTE | 2024-08-29 18:03 | NUR ---
SHIFT SUMMARY: PT AOX2 TO SELF AND PERSON. PLEASANTLY CONFUSED. SOME COMPLAINTS OF BACK PAIN WHEN BEING MOVED, BUT COMFORTABLE AT BASELINE. NEW IV PLACED AND ABX RAN PER EMR. EASILY REDIRECTED. STILL LIFT PT. LIFTED INTO CHAIR FOR LUNCH AND OT, TOLERATED WELL AND OT STATES SHE IS IMPROVING. LIFTED BACK INTO BED. ABLE TO WIGGLE AROUND A LITTLE BIT FOR REPOSITIONING. NOT EATING MUCH BUT DRINKING SOME. FORGETFUL AND CONFUSED BUT CAN SOMETIMES FOLLOW COMMANDS. PT IN BED RESTING, BED IN LOWEST POSITION, CALL LIGHT IN REACH. CONTINUING CARE.
--- NOTE | 2024-08-29 18:39 | NUR ---
THIS STEELWORKER HAS REVIEWED AND AGREES WITH ALL NOTES AND ASSESSMENTS BY DULCE WILSON.
[2024-08-29 19:57] VITALS: BP 104/70
[2024-08-30 04:01] VITALS: BP 133/77
--- NOTE | 2024-08-30 04:49 | NUR ---
SHIFT SUMMARY ADMITTED FOR UTI/AMS. FULL CODE. PLAN IS FOR ANTIB RX AND PLACEMENT. SHE WAS HALLUCINATING THIS SHIFT. BUT SHE WAS COOPERATIVE WITH CARE. REGULAR DIET. LIFT PATIENT. SHE IS INCONTINENT. PARACENTESIS PERFORMED 08/28/24. REDNESS/EXCORIATION IN PERINEAL FOLDS, ANTIFUNGAL POWDER WOULD BE A GREAT HELP TO THIS PATIENT. ON RA.
[2024-08-30 07:27] VITALS: BP 136/78
[2024-08-30 07:33] LABS: BASOPHILS ABSOLUTE AUTO 0.06 K/mm3 (0.00-0.23); BASOPHILS PERCENT AUTO 0 % (0-2); EOSINOPHILS ABSOLUTE AUTO 0.27 K/mm3 (0.00-0.68); EOSINOPHILS PERCENT AUTO 1 % (0-6); Hematocrit 40.3 % (33.0-51.0); IMMATURE GRAN ABSOLUTE AUTO 0.13 K/mm3 (0.00-0.10); IMMATURE GRAN PERCENT AUTO 1 % (0-1); LYMPHOCYTES ABSOLUTE AUTO 1.68 K/mm3 (0.84-5.20); LYMPHOCYTES PERCENT AUTO 9 % (21-46); MONOCYTES ABSOLUTE AUTO 1.44 K/mm3 (0.16-1.47); MONOCYTES PERCENT AUTO 8 % (4-13); Mean Corpuscular HGB 29.5 pg (26.0-34.0); Mean Corpuscular HGB Conc 32.3 g/dL (31.5-36.5); Mean Corpuscular Volume 92 fL (80-100); Mean Platelet Volume 8.7 fL (9.1-12.4); NEUTROPHILS ABSOLUTE AUTO 15.13 K/mm3 (1.96-9.15); NEUTROPHILS PERCENT AUTO 81 % (41-73); NRBC ABSOLUTE 0.02 K/mm3 (0.00-0.02); NRBC Auto 0.1 /100 WBC (0.0-0.2); Platelet Count 289 K/mm3 (150-400); RDW Coefficient Variation 14.1 % (11.7-14.2); RDW Standard Deviation 47.2 fL (35.1-46.3); White Blood Cell Count 18.71 K/mm3 (4.00-11.30)
[2024-08-30 08:08] LABS: Albumin/Globulin Ratio 0.6 (0.8-1.8); Bilirubin, Total 0.5 mg/dL (0.1-1.0); Bun/Creatinine Ratio 33.9 (12.0-20.0); Calcium, Blood 10.8 mg/dL (8.5-10.1); Creatinine, Blood 0.95 mg/dL (0.40-1.00); Globulin, Blood 3.3 g/dL (2.2-4.0); Potassium, Blood 4.1 mmol/L (3.5-5.5); Total Protein, Blood 5.3 g/dL (6.4-8.2)
[2024-08-30] MEDS ORDERED: Miconazole Nitrate 2% 85 GM PWD TOP SCH (11:55)
[2024-08-30] MEDS ORDERED: Acetaminophen 325 MG TABLET PO PRN (12:35)
[2024-08-30 15:01] VITALS: BP 120/73
--- NOTE | 2024-08-30 15:09 | NUR ---
CONTACTED DR ORELLANA REGARDING CHANGE IN WOUND CARE DUE TO PATIENT EXCORIATION. WOUND CARE ORDERS CHANGED TO CLEANSE WITH WOUND CLEANSER, PAT DRY, APPLY XEROFORM TOWOUND BED AND COVER WITH MEPILEX.
--- NOTE | 2024-08-30 16:50 | NUR ---
PATIENT A/O X 1. PATIENT HAS BEEN UP IN CHAIR TODAY VIA LIFT HOWEVER COMPLAINED OF PAIN ON RIGHT SIDE. PATIENT HAS NEW ORDER FOR ANTIFUNGAL POWDER FOR SKIN FOLDS WHICH WAS APPLIED. PATIENT STATED SHE FELT BETTER WITH THE POWDER. NEW WOUND CARE WERE PLACED AND WOUND CARE PREFORMED ON PATIENT COCCYX AND SACCRUM. COCCYX/RIGHT SIDE WAS CLEANSED WITH WOUND CLEANSER PAT DRY, XEROFORM APPLIED TO WOUND BED AND COVERED WITH MEPILEX. WOUND MEASURED 6 X 2 X 0 CM. AREA MASCERATED WITH NOTED ESCORIATION AT TOP. SACCRUM- AREA CLEANSED WITH WOUND CLEANSER, PAT DRY, XEROFORM PLACED ON BED OF WOUND COVERED WITH MEPILEX. AREA MEASURED 12 X 3 X 0 AREA WAS ESCORIATED. PATIENT HAS NEW ORDER FOR TYLENOL FOR PAIN. PAITENT HAS BEEN SLEEPING MOST OF THE PATIENT IS PENDING ACCPETANCE TO [facility] FOR DISCHARGE.
[2024-08-30 20:05] VITALS: BP 121/75
[2024-08-31 04:15] VITALS: BP 130/84
--- NOTE | 2024-08-31 05:37 | NUR ---
SHIFT SUMMARY: "AZAEL" AROUSES EASILY AND RESPONDS APPROPRIATELY. ATTENDS IN PLACE, CHANGED PRN, DRESSING TO COCCYX CHANGED PRN. PT DENIED PAIN AT THE BEGINNING OF THE SHIFT, BUT COMPLAINED OF PAIN WHEN TURNING AND REPOSTITIONING LOCATED ON HER STOMACH ASSOCIATED WITH MOVEMENT. PT HAS RESTED QUIETLY FREQUENTLY THIS SHIFT WITH EVEN, UNLABORED RESPIRATIONS. SHE IS A TWO-PERSON ASSIST FOR BED MOBILITY. IV TO LEFT WRIST PATENT, DRESSING CHANGED. SHE IS LYING IN BED WITH THE CALL LIGHT IN REACH, BED IN LOWEST POSITION. WILL GIVE REPORT TO DAY SHIFT RN.
[2024-08-31 07:24] VITALS: BP 109/76
[2024-08-31 11:16] LABS: Albumin, Blood 1.9 g/dL (3.4-5.0); Albumin/Globulin Ratio 0.5 (0.8-1.8); Bilirubin, Total 0.5 mg/dL (0.1-1.0); Bun/Creatinine Ratio 39.5 (12.0-20.0); Calcium, Blood 10.3 mg/dL (8.5-10.1); Creatinine, Blood 0.91 mg/dL (0.40-1.00); Globulin, Blood 3.8 g/dL (2.2-4.0); Potassium, Blood 4.5 mmol/L (3.5-5.5); Total Protein, Blood 5.7 g/dL (6.4-8.2)
[2024-08-31 12:25] LABS: BASOPHILS ABSOLUTE AUTO 0.07 K/mm3 (0.00-0.23); BASOPHILS PERCENT AUTO 0 % (0-2); EOSINOPHILS ABSOLUTE AUTO 0.17 K/mm3 (0.00-0.68); EOSINOPHILS PERCENT AUTO 1 % (0-6); Hematocrit 42.3 % (33.0-51.0); Hemoglobin 13.6 g/dL (11.5-16.0); IMMATURE GRAN ABSOLUTE AUTO 0.14 K/mm3 (0.00-0.10); IMMATURE GRAN PERCENT AUTO 1 % (0-1); LYMPHOCYTES ABSOLUTE AUTO 1.76 K/mm3 (0.84-5.20); LYMPHOCYTES PERCENT AUTO 8 % (21-46); MONOCYTES ABSOLUTE AUTO 1.38 K/mm3 (0.16-1.47); MONOCYTES PERCENT AUTO 6 % (4-13); Mean Corpuscular HGB 29.4 pg (26.0-34.0); Mean Corpuscular HGB Conc 32.2 g/dL (31.5-36.5); Mean Corpuscular Volume 91 fL (80-100); Mean Platelet Volume 8.7 fL (9.1-12.4); NEUTROPHILS ABSOLUTE AUTO 18.76 K/mm3 (1.96-9.15); NEUTROPHILS PERCENT AUTO 84 % (41-73); NRBC ABSOLUTE 0.06 K/mm3 (0.00-0.02); NRBC Auto 0.3 /100 WBC (0.0-0.2); Platelet Count 303 K/mm3 (150-400); RDW Coefficient Variation 14.2 % (11.7-14.2); RDW Standard Deviation 46.6 fL (35.1-46.3); Red Blood Cell Count 4.63 M/mm3 (3.80-5.20); White Blood Cell Count 22.28 K/mm3 (4.00-11.30)
[2024-08-31 16:33] VITALS: BP 100/65
--- NOTE | 2024-08-31 17:51 | NUR ---
PATIENT A/O X 3. PATIENT IS A TOTAL LIFT AND REQUIRES 2 PERSON ASSIST. PATIENT HAS RASH NOTED IN GROIN AREA WHICH PATIENT COMPLAINS OF PAIN WHEN CLEANSE. NYSTATIN HAS BEEN APPLIED AND DR ORELLANA AWARE OF PATIENTS RASH IN GROIN AREA. PATIENT. PATIENT HS WOUND CARE ON HER COCCYX AND RIGHT SIDE BUTTOCKS. AREA WAS CLEANSED WITH WOUND CLEANSER PAT DRY, COVERED WITH XEROFORM AND COVERED WITH MEPILEX. PATIENT TOLERATED PROCEDURE WELL. PATIENT DISCHARGE PLAN TO [facility] WHEN MEDICALLY STABLE DEVICE SALES CONSULTANT INVOLVED WITH DISCHARGE PLANNING.
[2024-08-31 19:31] VITALS: BP 130/83
[2024-09-01 04:00] VITALS: BP 126/75
[2024-09-01 05:42] LABS: BASOPHILS ABSOLUTE AUTO 0.08 K/mm3 (0.00-0.23); BASOPHILS PERCENT AUTO 0 % (0-2); EOSINOPHILS ABSOLUTE AUTO 0.37 K/mm3 (0.00-0.68); EOSINOPHILS PERCENT AUTO 2 % (0-6); Hematocrit 40.5 % (33.0-51.0); Hemoglobin 13.1 g/dL (11.5-16.0); IMMATURE GRAN ABSOLUTE AUTO 0.15 K/mm3 (0.00-0.10); IMMATURE GRAN PERCENT AUTO 1 % (0-1); LYMPHOCYTES ABSOLUTE AUTO 1.99 K/mm3 (0.84-5.20); LYMPHOCYTES PERCENT AUTO 11 % (21-46); MONOCYTES ABSOLUTE AUTO 1.26 K/mm3 (0.16-1.47); MONOCYTES PERCENT AUTO 7 % (4-13); Mean Corpuscular HGB 29.6 pg (26.0-34.0); Mean Corpuscular HGB Conc 32.3 g/dL (31.5-36.5); Mean Corpuscular Volume 92 fL (80-100); Mean Platelet Volume 8.9 fL (9.1-12.4); NEUTROPHILS ABSOLUTE AUTO 15.05 K/mm3 (1.96-9.15); NEUTROPHILS PERCENT AUTO 80 % (41-73); NRBC ABSOLUTE 0.03 K/mm3 (0.00-0.02); NRBC Auto 0.2 /100 WBC (0.0-0.2); Platelet Count 272 K/mm3 (150-400); RDW Coefficient Variation 14.3 % (11.7-14.2); RDW Standard Deviation 47.8 fL (35.1-46.3); Red Blood Cell Count 4.42 M/mm3 (3.80-5.20)
--- NOTE | 2024-09-01 05:52 | NUR ---
SHIFT SUMMARY: "AZAEL" IS A&OX1-2. VSS, NO ACUTE EVENTS OVERNIGHT. SHE IS TOLERATING PO INTAKE WELL, HAS BEEN TURNED AND REPOSITIONED FREQUENTLY, AND HAS RESTED FOR THE MAJORITY OF THE SHIFT. IV TO LEFT WRIST PATENT. ATTENDS IN PLACE, PT IS INCONTINENT OF BLADDER AND BOWEL, MEPILEX TO COCCYX CLEAN AND DRY. SHE IS LYING IN BED WITH THE CALL LIGHT IN REACH, BED IN LOWEST POSITION. WILL GIVE REPORT TO DAY SHIFT RN.
[2024-09-01 06:23] LABS: Bun/Creatinine Ratio 37.3 (12.0-20.0); Calcium, Blood 10.4 mg/dL (8.5-10.1); Creatinine, Blood 1.02 mg/dL (0.40-1.00); Potassium, Blood 4.2 mmol/L (3.5-5.5)
[2024-09-01 07:52] VITALS: BP 119/74
--- NOTE | 2024-09-01 12:03 | NUR ---
ONCOLOGY DR JENKINS OFFICE CONTACTED PER DR REYNA GARCIA. SAV HAS BEEN SEEN BY DR JENKINS, DR JENKINS OUT OF THE OFFICE HOWEVER WILL SEND MESSAGE TO [facility] ONCOLOGIST TO CONSULT WITH PATIENT
[2024-09-01 15:26] VITALS: BP 115/78
--- NOTE | 2024-09-01 16:23 | NUR ---
PATIENT HAS BEEN A/O X 2. PATIENT HAS BEEN SLEEPING MOST OF THE DAY AND HAS DECLINED BREAKFAST AND LUNCH. PATIENT IS EASILY AROUSABLE HOWEVER IS FEELING DOWN AFTER BEING ADVISED OF RETURN OF CANCER. CONSULT WAS PLACED FOR ONCOLOGY HOWEVER DR JENKINS WAS OUT OF TOWN AND COVERING PROVIDER TO SEE PATIENT. PATIENT HAS BEEN TALKING TO FAMILY OFF AND ON TODAY REGARDING HER DECISION FOR TREATMENT VS NON TREATMENT. PATIENT CONTINUES TO HAVE RASH ON RIGHT VAGIANL FOLDS WHICH NYSTATIN IS BEING USED FOR. WOUND CARE WAS PREFOMRED ON COCCYX AND SIDE OF BUTTOCKS.
[2024-09-01 20:34] VITALS: BP 132/84
[2024-09-02 06:04] VITALS: BP 119/72
--- NOTE | 2024-09-02 06:33 | NUR ---
SHIFT SUMMARY: "AZAEL" IS A&OX2. VSS, NO ACUTE EVENTS OVERNIGHT. PT HAS TAKEN IN VERY LITTLE PO INTAKE THIS SHIFT, ATTENDS IN PLACE, MEPILEX IN PLACE OVER COCCYX. PT'S SKIN REMAINS EXCORIATED AND DRESSING TO WOUNDS TO THE COCCYX AREA CHANGED. IV TO RIGHT WRIST PATENT. PT HAS BEEN TURNED AND REPOSITIONED FREQUENTLY. PT MAY BENEFIT FROM GOTTLIEB PLACEMENT NOW THAT ABX HAVE BEEN DISCONTINUED. SHE IS LYING IN BED WITH THE CALL LIGHT IN REACH. WILL GIVE REPORT TO DAY SHIFT RN.
[2024-09-02 07:03] VITALS: BP 119/69
[2024-09-02 15:05] VITALS: BP 126/80
[2024-09-02 20:09] VITALS: BP 134/72
[2024-09-02] MEDS ORDERED: Miconazole Nitrate 28 GM CREAM..G. TOP SCH (21:00)
[2024-09-03 05:10] VITALS: BP 120/70
--- NOTE | 2024-09-03 05:26 | NUR ---
SHIFT SUMMARY: "AZAEL" IS A&OX2 WITH EPISODES OF CONFUSION. VSS, NO ACUTE EVENTS OVERNIGHT. PT'S HEART RATE HAS BEEN TRENDING UP. SHE IS TOLERATING PO INTAKE WELL, HAS BEEN TURNED AND REPOSITIONED FREQUENTLY. ATTENDS IN PLACE, PT IS INCONTINENT OF BLADDER AND BOWEL. CREAM APPLIED TO SKIN WITH ATTENDS CHANGE. SHE IS LYING IN BED WITH THE CALL LIGHT IN REACH, BED IN LOWEST POSTION. WILL GIVE REPORT TO DAY SHIFT RN.
[2024-09-03 06:26] LABS: BASOPHILS ABSOLUTE AUTO 0.06 K/mm3 (0.00-0.23); BASOPHILS PERCENT AUTO 0 % (0-2); EOSINOPHILS PERCENT AUTO 2 % (0-6); Hemoglobin 12.8 g/dL (11.5-16.0); IMMATURE GRAN ABSOLUTE AUTO 0.12 K/mm3 (0.00-0.10); IMMATURE GRAN PERCENT AUTO 1 % (0-1); LYMPHOCYTES ABSOLUTE AUTO 2.02 K/mm3 (0.84-5.20); LYMPHOCYTES PERCENT AUTO 13 % (21-46); MONOCYTES ABSOLUTE AUTO 1.27 K/mm3 (0.16-1.47); MONOCYTES PERCENT AUTO 8 % (4-13); Mean Corpuscular HGB 29.4 pg (26.0-34.0); Mean Corpuscular HGB Conc 32.8 g/dL (31.5-36.5); Mean Corpuscular Volume 89 fL (80-100); Mean Platelet Volume 8.8 fL (9.1-12.4); NEUTROPHILS ABSOLUTE AUTO 11.93 K/mm3 (1.96-9.15); NEUTROPHILS PERCENT AUTO 76 % (41-73); NRBC ABSOLUTE 0.04 K/mm3 (0.00-0.02); NRBC Auto 0.3 /100 WBC (0.0-0.2); Platelet Count 269 K/mm3 (150-400); RDW Coefficient Variation 14.3 % (11.7-14.2); Red Blood Cell Count 4.36 M/mm3 (3.80-5.20)
[2024-09-03 06:55] LABS: Bun/Creatinine Ratio 37.7 (12.0-20.0); Calcium, Blood 10.5 mg/dL (8.5-10.1); Creatinine, Blood 1.3 mg/dL (0.40-1.00); Potassium, Blood 4.4 mmol/L (3.5-5.5)
[2024-09-03 07:07] VITALS: BP 115/76
[2024-09-03 15:19] LABS: Source, Urine Straight Cath
[2024-09-03 15:29] VITALS: BP 126/82
[2024-09-03 15:40] LABS: Appearance, Urine Hazy (Clear); Bilirubin, Urine Neg (Neg); Blood, Urine 2+ (Neg); Color, Urine Yellow (P-Yellow); Glucose Qualitative, Urine Neg (Neg); Ketones, Urine Neg (Neg); Leukocyte Esterase, Urine 1+ (Neg); Nitrite, Urine Neg (Neg); Protein, Urine 2+ (Neg); Specific Gravity, Urine 1.025 (1.003-1.022); Urobilinogen, Urine NORM (Normal)
[2024-09-03 16:00] LABS: Granular Casts 0-2 /lpf (0); Hyaline Casts 0-2 /lpf (0-2); Mucus Light (0-Heavy)
[2024-09-03 16:01] LABS: Amorphous Light (0-Heavy); Bacteria Mod /hpf; Red Blood Cells, Urine 0-2 /hpf (0-2); Squamous Epithelial Cells Few /hpf (Few)
[2024-09-03 16:02] LABS: Transitional Epithelial Cells Rare /hpf (0-Rare)
[2024-09-03] MEDS ORDERED: NS 1,000 ML IV SCH (18:15)
--- NOTE | 2024-09-03 18:39 | NUR ---
SHIFT SUMMARY PATIENT IN BED THIS SHIFT, DECLINED TO GET UP. GOTTLIEB PLACED FOR WOUND CARE, SPECIMEN SENT TO LAB FOR CULTURE. A/OX 3. FAMILY IN TO VISIT, PATIENT VERBALIZING DESIRE TO LEAVE. NO C/O PAIN. ACCEPTING OF REPOSITIONING. CALL LIGHT IN REACH, CARES ONGOING.
[2024-09-03 20:58] VITALS: BP 127/81
[2024-09-04 02:38] VITALS: BP 117/71
[2024-09-04 05:50] LABS: BASOPHILS ABSOLUTE AUTO 0.07 K/mm3 (0.00-0.23); BASOPHILS PERCENT AUTO 1 % (0-2); EOSINOPHILS ABSOLUTE AUTO 0.33 K/mm3 (0.00-0.68); EOSINOPHILS PERCENT AUTO 2 % (0-6); Hematocrit 36.5 % (33.0-51.0); IMMATURE GRAN ABSOLUTE AUTO 0.18 K/mm3 (0.00-0.10); IMMATURE GRAN PERCENT AUTO 1 % (0-1); LYMPHOCYTES PERCENT AUTO 14 % (21-46); MONOCYTES ABSOLUTE AUTO 1.59 K/mm3 (0.16-1.47); MONOCYTES PERCENT AUTO 11 % (4-13); Mean Corpuscular HGB 29.6 pg (26.0-34.0); Mean Corpuscular HGB Conc 32.9 g/dL (31.5-36.5); Mean Corpuscular Volume 90 fL (80-100); Mean Platelet Volume 8.8 fL (9.1-12.4); NEUTROPHILS ABSOLUTE AUTO 10.42 K/mm3 (1.96-9.15); NEUTROPHILS PERCENT AUTO 71 % (41-73); NRBC ABSOLUTE 0.03 K/mm3 (0.00-0.02); NRBC Auto 0.2 /100 WBC (0.0-0.2); Platelet Count 220 K/mm3 (150-400); RDW Coefficient Variation 14.4 % (11.7-14.2); RDW Standard Deviation 46.9 fL (35.1-46.3); Red Blood Cell Count 4.05 M/mm3 (3.80-5.20); White Blood Cell Count 14.59 K/mm3 (4.00-11.30)
--- NOTE | 2024-09-04 05:55 | NUR ---
SHIFT SUMMARY PATIENT SLEPT IN LONG INTERVALS, MAKES LITTLE ATTEMPT TO CHANGE POSITION ON HER OWN. IVF INFUSING ALL NIGHT. GIVEN PRN OXYCODONE AND TYLENOL.
[2024-09-04 06:20] LABS: Bun/Creatinine Ratio 42.7 (12.0-20.0); Calcium, Blood 9.8 mg/dL (8.5-10.1); Creatinine, Blood 1.17 mg/dL (0.40-1.00); Potassium, Blood 4.2 mmol/L (3.5-5.5)
--- NOTE | 2024-09-04 16:12 | NUR ---
This patient has history of DM, HTN, HLD, aortic stenosis, PE and endometrial adenocarcinoma status post chemotherapy. She presented to the ER with AMS and hallucinations due to UTI. Cultures grew multiple bacteria. While here the leukosytosis worsened. The patient has been living at her daughter's home for the past few months, but has mostly been in and out of rehab and the hospital recently. Repeat CT performed which showed return of carcinomatosis. The patient remains so weak, she has needed a anna lift for changing positions at home. The patient would first need rehab prior to attempting further oncology treatments. However, the patient is already not eating or drinking more than sips, and is refusing care. Discussion with JOSE CARLOS Cummings at [facility] with Dr. Marie. She states that hospice is very appropriate for the patient, and pt's daughter states she is ready to take the pt home with hospice given all of the major changes in pt's mentation and especially with metastatic cancer returning. Plan for [facility] to admit pt on 09/08.
--- NOTE | 2024-09-04 16:39 | NUR ---
Daughter Zoë agrees to code status change as pt is going home with hospice, and given her current condition, family agrees CPR would not be appropriate. Requesting DNR, and depending on the daughter's visit tomorrow, family may opt for comfort care.
--- NOTE | 2024-09-04 16:43 | NUR ---
Pt will d/c with [facility] on Wednesday, 09/08. This is the next available hospice admission for the agencies who do travel to [facility]. Referral sent to [facility]. Spoke with Rhoda at [facility], who states they are out further than wednesday, ask me to pass it to another agency if they have a sooner opening, and family did not have a preferece.
[2024-09-04 16:45] VITALS: BP 128/75
--- NOTE | 2024-09-04 18:05 | NUR ---
SHIFT SUMMARY PT A&O TO SELF AND IS RESISTANT TO CARE. REFUSES TO TAKE PO MEDICATION, REFUSED AM VITALS, PM VSS AND NO COMPLAINTS OF CP/PRESSURE OR SOB. PT GOTTLIEB CATHETER REMOVED WITH NO ADVERSE REACTIONS, PT TOLERATED INTERVENTION WELL. PALLIATIVE CARE DISCUSSED PLAN OF CARE, HOSPICE CONSULT PLACED AND CODE STATUS CHANGED TO DNR. NO ACUTE EVENTS AT THIS TIME. PT LEFT IN A POSITION OF SAFETY WITH FALL PRECAUTIONS IN PLACE AND CALL LIGHT IN REACH.
[2024-09-04 19:17] VITALS: BP 131/78
[2024-09-05 02:36] VITALS: BP 132/88
--- NOTE | 2024-09-05 05:44 | NUR ---
SHIFT SUMMARY PATIENT IS NOW DNR AND SHE DOES NOT WANT US TURNING, SHE IS VERY MUCH ORIENTED TO THAT. ON HER OWN, SHE BARELY MOVES IN THE BED. REMAINS IN CONTACT ISOLATION FOR VRB IN URINE.
[2024-09-05 07:01] VITALS: BP 130/81
--- NOTE | 2024-09-05 14:23 | NUR ---
Pt and family met with Dr at bedside, continued with hospice conversation, no changes in plan. Pt to discharge home with [facility] on Wednesday, 09/08.
--- NOTE | 2024-09-05 17:40 | NUR ---
SUMMARY- PT ALERT TO SELF AND FAMILY, FREQ CONFUSED TO SITUATION. FREQ USES CALL LIGHT AND REPEATED QUESTIONS. PT ON BEDRESE, ROUTINE TURN SCHEDULE Q2. PT HAS SKIN BREAKDOWN ON SACRUM, TOOK PICTURES AND REDRESSED WITH MEPILEX AT 1400/ ZINC CREAM TO SURROUNDING PERINIUM FOR ESCORIATION, AND A SKIN SPLIT L GROIN. REPLACED GOTTLIEB TO PREVENT MOISTURE OVER SKIN ISSUES. PT MEDICATED OXY ONCE THIS PM FOR COMPLAINTS OF GOTTLIEB BOTHERING HER AND GEN PAIN. PLAN FOR PT TO GO HOME WITH HOSPICE, SS AND PALL WORKING WITH THE FAMILY. FOR SURE WEDNESDAY DC BUT PT READY NOW, ENCOURAGING FAMILY TO RECEIVE PT SOONER. PT TAKING IN FLUIDS SPARINGLY AND MIN SOLID FOOD INTAKE/ WILL REPORT TO NOC RN
[2024-09-05 19:59] VITALS: BP 120/87
--- NOTE | 2024-09-06 05:23 | NUR ---
SHIFT SUMMARY 79 YR F ADMITTED ON 08/15/24. DNR. NO ACUTE CHANGES THIS SHIFT. PT HAS SLEPT FOR THE ENTIRETY OF THIS SHIFT. GOTTLIEB IS PATENT AND DRAINING WELL, HOWEVER, PT HAS LITTLE OUTPUT. WOUND CARE DONE THIS SHIFT. WILL CONTINUE TO MONITOR. BED IN LOW POSITION AND CALL LIGHT IN REACH.
[2024-09-06 05:35] VITALS: BP 124/81
--- NOTE | 2024-09-06 05:58 | NUR ---
SACRAL WOUND CLEANSED W/ WOUND MATERIAL MAN AND PATTED DRY W/ GAUZE. MEPILEX APPLIED THEN LARGER MEPILEX OVER THAT FOR BETTER COVERAGE AND COMFORT. PT TOLERATED WELL.
[2024-09-06 08:11] VITALS: BP 118/79
[2024-09-06] MEDS ORDERED: OxyCODONE HCL 5 MG TAB PO PRN (14:50)
[2024-09-06 16:26] VITALS: BP 123/75
--- NOTE | 2024-09-06 18:16 | NUR ---
SUMMARY- PT ON BEDREST, TURNED Q2. MIN PO INTAKE, HAD ORANGES FOR BREAKFAST AND HALF SUPPLEMENT. TOOK IN ABOUT 500ML OF ICE WATER AND A SNACK HER SISTER BROUGHT. HAS BEEN MORE SLEEPY TODAY BUT AROUSES TO VERBAL STIM. MEDICATED FOR BACK AND LEG PAIN X2 TODAY, HELPFUL TO RELEIVE PAIN ESPECIALLY WHEN MOVING PT. GOTTLIEB PATENT, ONLY 100ML OUT TODAY. PT GIVEN A BED BATH TODYA. MEPILEX INTACT FROM [facility] LAST NIGHT. GOTTLIEB CATH CARE PERFORMED WITH BATH 1700 AD IN AM. PLAN TO DC HOME WEDNESDAY ON HOSPICE.
[2024-09-06 20:03] VITALS: BP 119/79
[2024-09-07 03:36] VITALS: BP 113/71
--- NOTE | 2024-09-07 05:10 | NUR ---
SHIFT SUMMARY. PATIENT IS ALERT TO SELF AND PERSON. PATIENT SOMULENT THIS EVENING. DRESSING CHANGED THIS AM. PATIENT PUSHES AGAINST STAFF WITH ROLLING AT TIMES D/T FEARFULNESS OF FALLING-PATIENT REASSURED AND WORKED WELL WITH BUTCHER HEAD AND THIS RN DURING ROLLING. PATIENT IS PAINFUL WITH MOVING-PATIENT REPOSITIONED PATIENT WOULD ALLOW. PATIENT HAS GOTTLIEB CATHETER THAT IS PATENT AND DRAINING TO GRAVITY WITH LITTLE OUTPUT. FEET AMBULATED WITH PILLOWS. BED IS LOCKED IN THE LOWEST POSITION WITH CALL LIGHT IN REACH. CARE IS ONGOING.
[2024-09-07 16:22] VITALS: BP 117/83
--- NOTE | 2024-09-07 17:16 | NUR ---
ABDIRASHID SUMMARY: PT AOX2 TO SELF AND PLACE. REMEMBERED THIS RN FROM A WEEK AGO. VERY PLEASANTLY CONFUSED BUT THE DAY WENT ON PT WAS MORE WITHDRAWN. REPOSITIONED AND WOUND CARE PERFORMED. PT EXPRESSED A LOT OF PAIN AND MEDICATED PER EMR. POWDER APPLEIED TO EXCORIATED UNDER THE FOLDS. PT DID NOT TOLERATE DIET VERY WELL. JUST DRINKING ICE WATER AND HAD SOME BITES OF PIE. PT SISTER CAME TO VISIT WHICH PT SEEMED TO ENJOY A LOT. IV WOULD NOT FLUSHED, DISCUSSED WITH DOCTOR AND IV ACCESS DISCONTINUED. PT CURRENTLY RESTING IN BED, CALL LIGHT IN REACH, BED IN LOWEST POSITION. CONTINUING CARE.
[2024-09-07 20:42] VITALS: BP 118/79
[2024-09-08 02:27] VITALS: BP 100/78
[2024-09-08 07:35] VITALS: BP 100/73
--- NOTE | 2024-09-08 07:36 | NUR ---
SUMMARY: PT A/OX3-4 BUT IS PLEASANTLY CONFUSED AT TIMES. SHE'S ABLE TO SPECIFY NEEDS WHEN STAFF IN ROOM BUT NEGLECTS CALL LIGHT USE. PT IS BEDREST W/LIFT REQUIRED AND TURN SCHEDULE MAINTAINED. COCCYX IS EXCORIATED W/SMALL OPEN SORES AND AREA WAS CLEANSED W/DX CHANGED PER ORDERS. SHE ALSO HAS EXCORIATION TO HER PANUS W/MUPIROCEN POWDER AND CREAM APPLIED AND EXUDRY REPLACED. GOTTLIEB IS PATENT AND DRAINING. ROXICODONE RECEIVED FOR TOLERABLE RELIEF OF ASSOCIATED AND GENERAL PAIN. NO ACUTE CHANGES, VSS/AFEBRILE. WCTM AND REPORT TO DAY RN.
[2024-09-08] MEDS ORDERED: Inzo Antifun141.7 GM TOP (10:51)
[2024-09-08] MEDS ORDERED: OXYC5 PO (10:51)
[2024-09-08] MEDS ORDERED: MIRALAX17 GM PO (10:52)
--- NOTE | 2024-09-08 12:13 | NUR ---
DISCHARGE 1100-PT DISCHARGE BY [facility]IA EMS, TOLD SHE WAS BEING TRANSPORTED TO HER DAUGHTERS HOUSE FOR HOSPICE. BELONGINGS AND DISCHARGE PAPERWORK IN PERSONAL BELONGINGS BAG CARRIED BY EMS. PT AOX3, COOPERATIVE, WITH GOTTLIEB INTACT.
== END 2024-09-08 11:16 | disposition hospice, home (50) | DRG 871 ==
LOC: ER 13:46 → MEDS 19:00 → ENPENDDIS 09-08 10:30 → MEDS 09-08 11:16
PROVIDERS: Chiropractor; Emergency Medicine; Family Medicine; Hospitalist; Internal Medicine; Nurse Practitioner Acute Care; ADMIT Student in an Organized Health Care Education/Training Program
PROC: 3E03329 Introduction of Other Anti-infective into Peripheral Vein, Percutaneous Approach (ICD-10-PCS; principal; 2024-08-15)
PROC: 0W9G3ZX Drainage of Peritoneal Cavity, Percutaneous Approach, Diagnostic (ICD-10-PCS; 2024-08-28)
DX: A41.4 Sepsis due to anaerobes (principal); E43 Unspecified severe protein-calorie malnutrition; G92.8 Other toxic encephalopathy; K65.2 Spontaneous bacterial peritonitis; N39.0 Urinary tract infection, site not specified; C78.6 Secondary malignant neoplasm of retroperitoneum and peritoneum; R18.0 Malignant ascites; Z66 Do not resuscitate; Z51.5 Encounter for palliative care; C54.1 Malignant neoplasm of endometrium; I35.0 Nonrheumatic aortic (valve) stenosis; E83.52 Hypercalcemia; F03.90 Unspecified dementia, unspecified severity, without behavioral disturbance, psychotic disturbance, mood disturbance, and anxiety; T36.95XA Adverse effect of unspecified systemic antibiotic, initial encounter; K59.00 Constipation, unspecified; B96.4 Proteus (mirabilis) (morganii) as the cause of diseases classified elsewhere; B96.89 Other specified bacterial agents as the cause of diseases classified elsewhere; R62.7 Adult failure to thrive; E78.5 Hyperlipidemia, unspecified; E11.9 Type 2 diabetes mellitus without complications; Z88.8 Allergy status to other drugs, medicaments and biological substances; Z90.710 Acquired absence of both cervix and uterus; Z90.722 Acquired absence of ovaries, bilateral; Z90.79 Acquired absence of other genital organ(s); Z86.711 Personal history of pulmonary embolism; Z79.01 Long term (current) use of anticoagulants; Z79.4 Long term (current) use of insulin; Z87.19 Personal history of other diseases of the digestive system; Z92.21 Personal history of antineoplastic chemotherapy; Z90.11 Acquired absence of right breast and nipple; Z98.890 Other specified postprocedural states; Z68.31 Body mass index [BMI] 31.0-31.9, adult; R30.0 Dysuria
CPT/HCPCS: 36415; 49083; 51701; 71046; 74177; 80048; 80053; 81001; 82042; 82306; 82947; 83036; 83605; 83615; 83735; 83970; 84100; 84157; 85025; 85027; 85610; 85651; 85730; 86140; 87070; 87077; 87086; 87186; 87205; 88108; 88305; 88341; 88342; 89051; 96361; 96365-59; 97110; 97161; 97165; 97530; 97535; 99284-25; A9270; J0692; J0696; J1815; J2020; J2405; J3370; J7030; J7040; J7050; P9047; Q9967; U0002